=== PATIENT | male | born 1970 | race American Indian/Alaskan Native ===

== ENCOUNTER 2021-02-02 04:23 | Inpatient (IN) | payer SELFPAY ==
[2021-02-02] MEDS ORDERED: ONDANSETRON 4 MG ODT TAB PO ONE (05:38)
[2021-02-02] MEDS ORDERED: predniSONE 20 MG TAB PO ONE (05:38)
[2021-02-02] MEDS ORDERED: oxyCODONE /ACETAMINOPHEN 5-325MG TAB PO ONE (05:38)
[2021-02-02] MEDS ORDERED: IBUPROFEN 600 MG TAB PO ONE (05:38)
--- NOTE | 2021-02-02 05:40 | Event Note ---
ED Screening Note Date of service: 02/02/21 Time: 05:39 ED Screening Note: Patient is a 50-year-old -[place] male with no past medical history who presents to the ED with complaint of acute onset persistent nontraumatic low back pain for the last 3 days. Patient states that he has not been able to walk because of worsening pain. Patient denies fall, traumatic injury, dizziness, syncope, fever, chills, nausea and vomiting, abdominal pain, testicular pain, dysuria, urinary frequency and urgency, hematuria, urinary retention, bowel incontinence or saddle paresthesia. This initial assessment/diagnostic orders/clinical plan/treatment(s) is/are subject to change based on patients health status, clinical progression and re- assessment by fellow clinical providers in the ED. Further treatment and workup at subsequent clinical providers discretion. Patient/guardian urged not to elope from the ED as their condition may be serious if not clinically assessed and managed. Initial orders include:
[2021-02-02 06:09] LABS: Bilirubin,Urine NEG (Negative); Blood,Urine LG (Negative); Color,Urine Amber (Yellow); Hyaline Casts,Urine 2 /LPF; Mucus,Urine 3+ /HPF; Protein,Urine >500 mg/dL (Negative)
--- NOTE | 2021-02-02 06:14 | XRay Report ---
LUMBAR SPINE 2 VIEWS INDICATION: Low back pain COMPARISON: None. FINDINGS: No acute, displaced fracture is seen. Alignment is within normal limits. Disc space height is maintained. No significant degenerative changes. CONCLUSION: 1. No acute findings. Signer Name: Edd Felix MD Signed: 02/02/2021 6:10 AM Workstation Name: [id number]
[2021-02-02] MEDS ORDERED: SODIUM CHLORIDE 0.9% 1000 ML 1,000 ML IV ONE (07:38)
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
[2021-02-02 08:18] LABS: Basophils % (Auto) 0.5 % (0.0-1.8); Eosinophils % (Auto) 0.4 % (0.0-4.3); Hematocrit 45.1 % (35.5-45.6); Hemoglobin 15.2 gm/dl (11.8-15.2); Lymphocytes # (Auto) 0.9 K/mm3 (1.2-5.4); Lymphocytes % (Auto) 15.5 % (13.4-35.0); Mean Corpuscular HGB Conc 34 % (32-34); Mean Corpuscular Volume 96 fl (84-94); Monocytes # (Auto) 0.3 K/mm3 (0.0-0.8); Monocytes % (Auto) 4.6 % (0.0-7.3); Platelet Count 218 K/mm3 (140-440); Red Blood Count 4.71 M/mm3 (3.65-5.03); Red Cell Distribution Width 13.9 % (13.2-15.2)
[2021-02-02 08:33] LABS: Alanine Aminotransferase 232 units/L (7-56); Albumin 4.7 g/dL (3.9-5); BUN/Creatinine Ratio 19; Blood Urea Nitrogen 25 mg/dL (9-20); Calcium 9.3 mg/dL (8.4-10.2); Hemolysis Index 32
--- NOTE | 2021-02-02 08:45 | Cat Scan Report ---
CT ABDOMEN AND PELVIS WITHOUT CONTRAST INDICATION / CLINICAL INFORMATION: abd pain r/o kidney stone. TECHNIQUE: Axial CT images were obtained through the abdomen and pelvis without IV contrast. All CT scans at this location are performed using CT dose reduction for ALARA by means of automated exposure control. COMPARISON: None available. FINDINGS: LOWER CHEST: No significant abnormality. AORTA / ARTERIES: No significant abnormality. IVC / VEINS: No significant abnormality. LYMPH NODES: No significant adenopathy. COLON: No significant abnormality. APPENDIX: No significant abnormality. STOMACH / SMALL BOWEL: No significant abnormality. PERITONEUM: No free fluid. No free air. No fluid collection. LIVER: No significant abnormality. GALLBLADDER: Increased density within the gallbladder lumen suggesting sludge. BILE DUCTS: No significant abnormality. PANCREAS: No significant abnormality. SPLEEN: No significant abnormality. ADRENALS: No significant abnormality. RIGHT KIDNEY / URETER: No significant abnormality. LEFT KIDNEY / URETER: No significant abnormality. URINARY BLADDER: No significant abnormality. REPRODUCTIVE ORGANS: No significant abnormality. SKELETAL SYSTEM: No significant abnormality. ADDITIONAL FINDINGS: None. IMPRESSION: 1. No nephrolithiasis or hydronephrosis. 2. Increased density within gallbladder lumen suggesting sludge. Signer Name: Adrián Novoa DO Signed: 02/02/2021 8:41 AM Workstation Name: [id number]
--- NOTE | 2021-02-02 10:03 | Ultrasound Report ---
ULTRASOUND ABDOMEN, LIMITED (RIGHT UPPER QUADRANT) INDICATION: ruq u/s- back pain- inc lft. COMPARISON: None available. FINDINGS: Pancreas: Visualized portion shows no significant abnormality. Liver: Normal. Gallbladder: There is cholelithiasis. There is sludge in the lumen of the gallbladder. Bile ducts: The common bile duct measures up to 9 mm in diameter. The duct tapers to a normal diamete r at the pancreatic head. There is some echogenic material within the common duct suggesting presence of sludge. No stones are identified within the common duct. Common Bile Duct measures 9 mm. Free fluid: None. Additional Findings: None. IMPRESSION: 1. Sludge and gallstone are noted within the lumen of the gallbladder. 2. There is mild dilatation of the common bile duct proximally. The duct tapers to a normal diameter at the pancreatic head. There is some mild echogenic material within the common duct suggesting sludg e within the duct. Signer Name: Ramos Isidro MD Signed: 02/02/2021 9:58 AM Workstation Name: [id number]
[2021-02-02] MEDS ORDERED: LACTATED RINGERS 1,000 ML IV SCH (11:00)
--- NOTE | 2021-02-02 15:26 | History and Physical Report ---
History of Present Illness Date of admission: 02/02/21 10:41 History of present illness: 50-year-old -English male with PMH of substance abuse including cocaine currently, HIV diagnosed about 10 years ago and maintained on antiviral therapy and hernia surgery remotely was just released from detention last week after spending the last 9 months. He presented to ED with a 4-week history of low back pain with radiation and passing colored urine which he thought was blood. He has some difficulty ambulating due to back pain. He has no history of kidney stones. No dysuria. No fever or chills. No abdominal pains, nausea or vomiting. Appetite is unchanged. In ED, CT abdomen showed no kidney stone but did show gallstones and sludge. Blood work showed AST 515 ALT 232 TBR 2.3 and ALP 53. CBC normal. Creatinine 1.3. UA unremarkable. No RBC. Ultrasound showed gallstones and gall sludge in gallbladder without evidence of cholecystitis. Also sludge noted in the biliary ducts with mild dilatation of proximal common bile duct. Lipase 620. Patient is being admitted for acute biliary pancreatitis and the ED physician consulted gastroenterology. Review of systems: 13 system reviewed only the pertinent data stated ER. Patient denies fever or chills. No change in weight. Patient denies any history of cardiac problems, lung disease, diabetes, hypertension or strokes. P atient states that he is compliant with his antiviral HIV medication. Patient denies cough, dyspnea, palpitations, lightheadedness. Patient denies any history of back pain recent history of injury to back. He does smoke crack cocaine and the last time was about 2 days ago. Past medical history substance abuse including cocaine currently, HIV diagnosed about 10 years ago Past surgical history: Hernia repair reportedly. Social history: Just released from detention after spending 9 months. Lives with sister currently. Smokes 1 pack of cigarettes in a week. Does not use alcohol. Does smoke crack cocaine the last about 2 2 days ago. Family history: Noncontributory. Medications and Allergies Allergies Allergy/AdvReac Type Severity Reaction Status Date / Time shellfish derived Allergy Itching Verified 09/26/13 03:53 Home Medications Medication Instructions Recorded Confirmed Last Taken Type No Known Home Medications [No 02/02/21 02/02/21 Unknown History Reported Home Medications] Active Meds: Active Medications Lactated Ringer's (Lactated Ringers) 1,000 mls @ 75 mls/hr IV DIRECT ZIGGY Exam - Constitutional Vitals: Temp Pulse Resp BP Pulse Ox 97.9 F 98 H 18 145/71 97 02/02/21 07:24 02/02/21 04:34 02/02/21 05:46 02/02/21 07:24 02/02/21 04:34 General appearance: Present: no acute distress, well-nourished - EENT Eyes: Present: PERRL, EOM intact. Absent: scleral icterus ENT: clear oral mucosa, no thrush - Neck Neck: Present: supple - Respiratory Respiratory effort: normal Respiratory: bilateral: CTA - Cardiovascular Rhythm: regular - Extremities Extremities: No edema - Abdominal General gastrointestinal: Present: soft, non-tender, non-distended, normal bowel sounds, other (No CVA tenderness.) Male genitourinary: Present: deferred - Rectal Rectal Exam: deferred - Integumentary Integumentary: Absent: rash - Musculoskeletal Musculoskeletal: strength equal bilaterally, other (Straight leg raising test no rmal. No lumbar spinal tenderness with palpation/percussion.) - Psychiatric Psychiatric: appropriate mood/affect - Neurologic Neurologic: no focal deficits Results - Labs CBC & Chem 7: 02/02/21 07:56 02/02/21 07:56 Labs: Laboratory Last Values WBC 6.1 K/mm3 (4.5-11.0) 02/02/21 07:56 RBC 4.71 M/mm3 (3.65-5.03) 02/02/21 07:56 Hgb 15.2 gm/dl (11.8-15.2) 02/02/21 07:56 Hct 45.1 % (35.5-45.6) 02/02/21 07:56 MCV 96 fl (84-94) H 02/02/21 07:56 MCH 32 pg (28-32) 02/02/21 07:56 MCHC 34 % (32-34) 02/02/21 07:56 RDW 13.9 % (13.2-15.2) 02/02/21 07:56 Plt Count 218 K/mm3 (140-440) 02/02/21 07:56 Lymph % (Auto) 15.5 % (13.4-35.0) 02/02/21 07:56 [place] % (Auto) 4.6 % (0.0-7.3) 02/02/21 07:56 Eos % (Auto) 0.4 % (0.0-4.3) 02/02/21 07:56 Baso % (Auto) 0.5 % (0.0-1.8) 02/02/21 07:56 Lymph # (Auto) 0.9 K/mm3 (1.2-5.4) L 02/02/21 07:56 [place] # (Auto) 0.3 K/mm3 (0.0-0.8) 02/02/21 07:56 Eos # (Auto) 0.0 K/mm3 (0.0-0.4) 02/02/21 07:56 Baso # (Auto) 0.0 K/mm3 (0.0-0.1) 02/02/21 07:56 Seg Neutrophils % 79.0 % (40.0-70.0) H 02/02/21 07:56 Seg Neutrophils # 4.8 K/mm3 (1.8-7.7) 02/02/21 07:56 Sodium 138 mmol/L (137-145) 02/02/21 07:56 Potassium 4.3 mmol/L (3.6-5.0) 02/02/21 07:56 Chloride 99.9 mmol/L (98-107) 02/02/21 07:56 Carbon Dioxide 24 mmol/L (22-30) 02/02/21 07:56 Anion Gap 18 mmol/L 02/02/21 07:56 BUN 25 mg/dL (9-20) H 02/02/21 07:56 Creatinine 1.3 mg/dL (0.8-1.3) 02/02/21 07:56 Estimated GFR > 60 ml/min 02/02/21 07:56 BUN/Creatinine Ratio 19 % 02/02/21 07:56 Glucose 125 mg/dL (75-100) H 02/02/21 07:56 Calcium 9.3 mg/dL (8.4-10.2) 02/02/21 07:56 Total Bilirubin 2.30 mg/dL (0.1-1.2) H 02/02/21 07:56 AST 515 units/L (5-40) H 02/02/21 07:56 ALT 232 units/L (7-56) H 02/02/21 07:56 Alkaline Phosphatase 53 units/L (35-129) 02/02/21 07:56 Total Protein 8.4 g/dL (6.3-8.2) H 02/02/21 07:56 Albumin 4.7 g/dL (3.9-5) 02/02/21 07:56 Albumin/Globulin Ratio 1.3 % 02/02/21 07:56 Lipase 620 units/L (13-60) H 02/02/21 09:24 Urine Color [place] (Yellow) 02/02/21 Unknown Urine Turbidity Slightly-cloudy (Clear) 02/02/21 Unknown Urine pH 5.0 (5.0-7.0) 02/02/21 Unknown Ur Specific [place] 1.029 (1.003-1.030) 02/02/21 Unknown Urine Protein >500 mg/dL (Negative) 02/02/21 Unknown Urine Glucose (UA) Neg mg/dL (Negative) 02/02/21 Unknown Urine Ketones Neg mg/dL (Negative) 02/02/21 Unknown Urine Blood Lg (Negative) 02/02/21 Unknown Urine Nitrite Neg (Negative) 02/02/21 Unknown Urine Bilirubin Neg (Negative) 02/02/21 Unknown Urine Urobilinogen 4.0 mg/dL (<2.0) 02/02/21 Unknown Ur Leukocyte Esterase Neg (Negative) 02/02/21 Unknown Urine WBC (Auto) 7.0 /HPF (0.0-6.0) H 02/02/21 Unknown Urine RBC (Auto) 5.0 /HPF (0.0-6.0) 02/02/21 Unknown U Epithel Cells (Auto) < 1.0 /HPF (0-13.0) 02/02/21 Unknown Hyaline Casts 2 /LPF 02/02/21 Unknown Urine Mucus 3+ /HPF 02/02/21 Unknown Assessment and Plan Assessment and plan: Assessment: 50-year-old male presenting with a 4-day history of low back pain and found to have elevated lipase, elevated LFTs cholelithiasis and sludge in gallbladder as well as in biliary ducts with the mild dilatation of proximal common bile duct. Biliary pancreatitis Biliary obstruction Afebrile without acute GI symptoms, hemodynamically stable History of HIV diagnosed about 10 years ago Patient reports compliance with antiviral therapy Substance abuse including crack cocaine currently Plan: N.p.o. Hydration with IV fluids Pain management as needed GI already consulted Monitor lab abnormalities. Likely needs general surgery consultation for laparoscopic cholecystectomy DVT prophylaxis: Subcu Lovenox CODE STATUS: Full code Discussed with the patient in detail.
[2021-02-02] MEDS ORDERED: ONDANSETRON 4 MG/2 ML INJ IV PRN (15:33)
[2021-02-02] MEDS: HYDROmorphone 1 MG/1 ML INJ IV PRN ×2 (19:50→23:47)
[2021-02-02] MEDS: D5W/0.9% NACL 1,000 ML IV SCH ×2 (19:51→23:46)
[2021-02-02] MEDS: ENOXAPARIN 40 MG/0.4 ML INJ SUB-Q SCH (23:36)
[2021-02-03 06:00] LABS: Basophils % (Auto) 0.5 % (0.0-1.8); Eosinophils # (Auto) 0.1 K/mm3 (0.0-0.4); Eosinophils % (Auto) 1.4 % (0.0-4.3); Hematocrit 41.4 % (35.5-45.6); Hemoglobin 13.6 gm/dl (11.8-15.2); Lymphocytes # (Auto) 2.3 K/mm3 (1.2-5.4); Lymphocytes % (Auto) 37.2 % (13.4-35.0); Mean Corpuscular HGB Conc 33 % (32-34); Mean Corpuscular Volume 95 fl (84-94); Monocytes # (Auto) 0.4 K/mm3 (0.0-0.8); Monocytes % (Auto) 6.5 % (0.0-7.3); Platelet Count 196 K/mm3 (140-440); Red Blood Count 4.35 M/mm3 (3.65-5.03); Red Cell Distribution Width 13.9 % (13.2-15.2)
[2021-02-03 06:24] LABS: Alanine Aminotransferase 189 units/L (7-56); Albumin 3.8 g/dL (3.9-5); BUN/Creatinine Ratio 20; Blood Urea Nitrogen 20 mg/dL (9-20); Calcium 8.3 mg/dL (8.4-10.2); Hemolysis Index 9
[2021-02-03] MEDS: D5W/0.9% NACL 1,000 ML IV SCH ×2 (09:49→22:49)
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
[2021-02-03] MEDS ORDERED: WATER FOR IRRIG STERILE 250 ML BOTTLE IR ONE (13:09)
[2021-02-03] MEDS ORDERED: WATER FOR IRRIG STERILE 1,000 ML BOTTLE ONE (13:09)
--- NOTE | 2021-02-03 13:25 | Anesthesia Consultation ---
Anesthesia Consult and Med Hx Date of service: 02/04/21 - Airway Anesthetic Teeth Evaluation: Good ROM Head & Neck: Adequate Mental/Hyoid Distance: Adequate Mallampati Class: Class II Intubation Access Assessment: Probably Good - Pulmonary Exam CTA: Yes - Cardiac Exam Cardiac Exam: RRR - Pre-Operative Health Status ASA Pre-Surgery Classification: ASA3 Proposed Anesthetic Plan: MAC - Pre-Anesthesia Comment Pre-Anesthesia Comments: HIV positive - Patient states he is compliant with antiviral medications. - Pulmonary Hx Smoking: Yes (2-3 cigarettes per day (1 pack per week)) Hx Asthma: No COPD: No Hx Pneumonia: No - Cardiovascular System Hx Hypertension: No Hx Heart Attack/AMI: No - Central Nervous System Hx Back Pain: Yes Hx Psychiatric Problems: Yes - Gastrointestinal Hx Gastroesophageal Reflux Disease: No - Endocrine Hx End Stage Renal Disease: No - Other Systems Hx Alcohol Use: No Hx Substance Use: Yes (hx of polysubtance abuse - most recent cocaine 2 days prior to admission) Hx Cancer: No - Additional Comments Anesthesia Medical History Comments: Patient scheduled for ERCP due to gallstones/abd pain. No hx of anesthetic complications.
--- NOTE | 2021-02-03 18:13 | Progress Note ---
Assessment and Plan Assessment and plan: Assessment: 50-year-old male presenting with a 4-day history of low back pain and found to have elevated lipase, elevated LFTs cholelithiasis and sludge in gallbladder as well as in biliary ducts with the mild dilatation of proximal common bile duct. Biliary pancreatitis Biliary obstruction with mild dilatation of distal CBD Afebrile without acute GI symptoms, hemodynamically stable History of HIV diagnosed about 10 years ago Patient reports compliance with antiviral therapy Substance abuse including crack cocaine currently Plan: Remains afebrile and hemodynamically stable N.p.o. Hydration with IV fluids Pain management as needed GI already consulted, ERCP scheduled for tomorrow Monitor lab abnormalities-LFTs improving but lipase is rising General surgery consulted for laparoscopic cholecystectomy after GI evaluation completed DVT prophylaxis: Subcu Lovenox CODE STATUS: Full code Discussed with the patient in detail. History Interval history: Patient remains afebrile and stable since. He has no nausea or abdominal pains. He still has low back pain mostly with walking. LFTs improving but let us actually is rising. Scheduled for ERCP tomorrow Hospitalist Physical - Constitutional Vitals: Temp Pulse Resp BP Pulse Ox 98.5 F 63 20 107/55 96 02/03/21 15:44 02/03/21 15:44 02/03/21 15:44 02/03/21 15:44 02/03/21 15:44 General appearance: Present: no acute distress, well-nourished - EENT Eyes: Present: PERRL ENT: clear oral mucosa - Neck Neck: Present: supple - Respiratory Respiratory effort: normal Respiratory: bilateral: CTA - Cardiovascular Rhythm: regular - Extremities Extremities: No edema - Abdominal General gastrointestinal: soft, non-tender, non-distended, normal bowel sounds, other (No mass appreciated) - Integumentary Integumentary: Absent: rash - Psychiatric Psychiatric: appropriate mood/affect - Neurologic Neurologic: no focal deficits Results - Labs CBC & Chem 7: 02/04/21 04:55 02/04/21 04:55 Labs: Laboratory Last Values WBC 6.1 K/mm3 (4.5-11.0) 02/03/21 05:37 RBC 4.35 M/mm3 (3.65-5.03) 02/03/21 05:37 Hgb 13.6 gm/dl (11.8-15.2) 02/03/21 05:37 Hct 41.4 % (35.5-45.6) 02/03/21 05:37 MCV 95 fl (84-94) H 02/03/21 05:37 MCH 31 pg (28-32) 02/03/21 05:37 MCHC 33 % (32-34) 02/03/21 05:37 RDW 13.9 % (13.2-15.2) 02/03/21 05:37 Plt Count 196 K/mm3 (140-440) 02/03/21 05:37 Lymph % (Auto) 37.2 % (13.4-35.0) H 02/03/21 05:37 [place] % (Auto) 6.5 % (0.0-7.3) 02/03/21 05:37 Eos % (Auto) 1.4 % (0.0-4.3) 02/03/21 05:37 Baso % (Auto) 0.5 % (0.0-1.8) 02/03/21 05:37 Lymph # (Auto) 2.3 K/mm3 (1.2-5.4) 02/03/21 05:37 [place] # (Auto) 0.4 K/mm3 (0.0-0.8) 02/03/21 05:37 Eos # (Auto) 0.1 K/mm3 (0.0-0.4) 02/03/21 05:37 Baso # (Auto) 0.0 K/mm3 (0.0-0.1) 02/03/21 05:37 Seg Neutrophils % 54.4 % (40.0-70.0) 02/03/21 05:37 Seg Neutrophils # 3.3 K/mm3 (1.8-7.7) 02/03/21 05:37 Sodium 142 mmol/L (137-145) 02/03/21 05:37 Potassium 3.8 mmol/L (3.6-5.0) 02/03/21 05:37 Chloride 104.2 mmol/L (98-107) 02/03/21 05:37 Carbon Dioxide 27 mmol/L (22-30) 02/03/21 05:37 Anion Gap 15 mmol/L 02/03/21 05:37 BUN 20 mg/dL (9-20) 02/03/21 05:37 Creatinine 1.0 mg/dL (0.8-1.3) 02/03/21 05:37 Estimated GFR > 60 ml/min 02/03/21 05:37 BUN/Creatinine Ratio 20 % 02/03/21 05:37 Glucose 92 mg/dL (75-100) 02/03/21 05:37 Calcium 8.3 mg/dL (8.4-10.2) L 02/03/21 05:37 Total Bilirubin 1.70 mg/dL (0.1-1.2) H 02/03/21 05:37 AST 399 units/L (5-40) H 02/03/21 05:37 ALT 189 units/L (7-56) H 02/03/21 05:37 Alkaline Phosphatase 44 units/L (35-129) 02/03/21 05:37 Total Protein 6.7 g/dL (6.3-8.2) D 02/03/21 05:37 Albumin 3.8 g/dL (3.9-5) L 02/03/21 05:37 Albumin/Globulin Ratio 1.3 % 02/03/21 05:37 Lipase 1050 units/L (13-60) H 02/03/21 05:37 Urine Color [place] (Yellow) 02/02/21 Unknown Urine Turbidity Slightly-cloudy (Clear) 02/02/21 Unknown Urine pH 5.0 (5.0-7.0) 02/02/21 Unknown Ur Specific [place] 1.029 (1.003-1.030) 02/02/21 Unknown Urine Protein >500 mg/dL (Negative) 02/02/21 Unknown Urine Glucose (UA) Neg mg/dL (Negative) 02/02/21 Unknown Urine Ketones Neg mg/dL (Negative) 02/02/21 Unknown Urine Blood Lg (Negative) 02/02/21 Unknown Urine Nitrite Neg (Negative) 02/02/21 Unknown Urine Bilirubin Neg (Negative) 02/02/21 Unknown Urine Urobilinogen 4.0 mg/dL (<2.0) 02/02/21 Unknown Ur Leukocyte Esterase Neg (Negative) 02/02/21 Unknown Urine WBC (Auto) 7.0 /HPF (0.0-6.0) H 02/02/21 Unknown Urine RBC (Auto) 5.0 /HPF (0.0-6.0) 02/02/21 Unknown U Epithel Cells (Auto) < 1.0 /HPF (0-13.0) 02/02/21 Unknown Hyaline Casts 2 /LPF 02/02/21 Unknown Urine Mucus 3+ /HPF 02/02/21 Unknown Marie/IV: Voiding Method Toilet Active Medications - Current Medications Current Medications: Generic Name Dose Route Start Last Admin Trade Name Freq PRN Reason Stop Dose Admin Enoxaparin Sodium 40 mg 02/02/21 22:00 02/02/21 23:36 Enoxaparin 40 Mg/0.4 Ml Inj SUB-Q 40 mg QDAY@2200 ZIGGY Administration Protocol Hydromorphone HCl 0.25 mg 02/02/21 15:33 02/02/21 23:47 Hydromorphone 1 Mg/1 Ml Inj IV 0.25 mg Q4H PRN Administration Pain , Severe (7-10) Dextrose/Sodium Chloride 1,000 mls @ 100 mls/hr 02/02/21 18:00 02/03/21 09:49 D5ns IV 100 mls/hr DIRECT ZIGGY Administration Ondansetron HCl 4 mg 02/02/21 15:33 02/02/21 19:50 Ondansetron 4 Mg/2 Ml Inj IV 4 mg Q6H PRN Administration Nausea And Vomiting
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
[2021-02-03] MEDS: ENOXAPARIN 40 MG/0.4 ML INJ SUB-Q SCH (22:49)
[2021-02-04 05:25] LABS: Hematocrit 41.1 % (35.5-45.6); Hemoglobin 13.6 gm/dl (11.8-15.2); Mean Corpuscular HGB Conc 33 % (32-34); Mean Corpuscular Volume 95 fl (84-94); Platelet Count 189 K/mm3 (140-440); Red Blood Count 4.35 M/mm3 (3.65-5.03); Red Cell Distribution Width 13.7 % (13.2-15.2)
[2021-02-04 05:44] LABS: Alanine Aminotransferase 147 units/L (7-56); Albumin 3.4 g/dL (3.9-5); BUN/Creatinine Ratio 15; Blood Urea Nitrogen 12 mg/dL (9-20); Calcium 7.8 mg/dL (8.4-10.2); Hemolysis Index 7
[2021-02-04] MEDS ORDERED: SODIUM CHLORIDE 0.9% 100 ML ONE (06:42)
[2021-02-04] MEDS ORDERED: SODIUM CHLORIDE 0.9% 1000 ML 1,000 ML ONE ×2 (06:42→09:21)
[2021-02-04 06:55] LABS: Total Cells Counted 100
[2021-02-04 06:56] LABS: Platelet Estimate Consistent w Auto
--- NOTE | 2021-02-04 07:41 | Anesthesia Day of Surgery ---
Anesthesia Day of Surgery - Day of Surgery Patient Examined: Yes Patient H&P Reviewed: Yes Patient is NPO: Yes
[2021-02-04] MEDS ORDERED: MIDAZOLAM 2 MG/2 ML INJ ONE (07:44)
[2021-02-04] MEDS ORDERED: HYDROmorphone 1 MG/1 ML INJ ONE (07:44)
[2021-02-04] MEDS ORDERED: propofoL 200 MG/20 ML VIAL IV ONE ×2 (07:44→07:45)
[2021-02-04] MEDS ORDERED: GLUCAGON (HUMAN RECOMBINANT) 1 MG/ML INJ IV ONE (08:20)
--- NOTE | 2021-02-04 09:07 | Post Operative Note ---
Pre-op diagnosis: Abnl US CBD Post-op diagnosis: other (Ampullary stenosis) Findings: 1. Normal external ampulla but stenosis or aberrent anatomy; could not cannulate cBD or PD Procedure: EGD with attempted ERCP Anesthesia: MAC Surgeon: NIYA VENEGAS Estimated blood loss: none Pathology: none Specimen disposition: other (N/A) Condition: stable Disposition: floor (Recs: 1. Clear liquids. 2. Trial of [place] since US showed only sludge not stones in CBD. 3. Continue abx. 4. Re=attempt ERCP when clinically stable.)
--- NOTE | 2021-02-04 09:30 | Progress Note ---
Assessment and Plan Assessment and plan: 50-year-old male presenting with a 4-day history of low back pain and found to have elevated lipase, elevated LFTs cholelithiasis and sludge in gallbladder as well as in biliary ducts with the mild dilatation of proximal common bile duct. --Biliary obstruction with mild dilatation of distal CBD Post EGD and trial of ERCP unable, plan repeat ERCP when patient is more stable Trial estradiol started by GI, Clear liquids at this point Surgery evaluated the patient, possible lap cholecystectomy prior to discharge --Transaminitis; slowly trending down Continue current management and supportive care --Acute pancreatitis; biliary pancreatitis Symptoms slightly improved For ERCP, clear liquid diet Lipase trending down 1050 -70 GI following GI following GI following Afebrile without acute GI symptoms, hemodynamically stable --History of HIV diagnosed about 10 years ago Patient reports compliance with antiviral therapy Patient will follow with private ID/health department upon discharge --Substance abuse including crack cocaine currently; Counseling done patient strongly advised to quit recreational drug use Patient verbalized understanding General surgery consulted for laparoscopic cholecystectomy after GI evaluation completed DVT prophylaxis: Subcu Lovenox CODE STATUS: Full code Closely monitor the patient and adjust management as needed 02/04/2021; post EGD/ERCP attempted GI started clear liquids, repeat attempt ERCP when patient is more stable Transaminases trending down Lipase trending down History Interval history: I have seen and examined the patient at the bedside Patient underwent EGD with attempted ERCP for biliary pancreatitis Findings noted, planning repeat ERCP when patient is more stable Trial of ursodiol started by GI Hospitalist Physical - Constitutional Vitals: Temp Pulse Resp BP Pulse Ox 97.8 F 65 12 116/53 97 02/04/21 07:36 02/04/21 07:36 02/04/21 07:36 02/04/21 07:36 02/04/21 04:11 General appearance: Present: no acute distress, well-nourished - EENT Eyes: Present: PERRL, EOM intact - Neck Neck: Present: supple, normal ROM - Respiratory Respiratory effort: normal Respiratory: bilateral: diminished, negative: rales, rhonchi, wheezing - Cardiovascular Rhythm: regular Heart Sounds: Present: S1 & S2 - Extremities Extremities: no ischemia, No edema - Abdominal General gastrointestinal: soft, non-tender, non-distended, normal bowel sounds - Integumentary Integumentary: Present: clear, warm - Psychiatric Psychiatric: appropriate mood/affect, cooperative - Neurologic Neurologic: moves all extremities Results - Labs CBC & Chem 7: 02/04/21 04:55 02/04/21 04:55 Labs: Laboratory Last Values WBC 3.3 K/mm3 (4.5-11.0) L 02/04/21 04:55 RBC 4.35 M/mm3 (3.65-5.03) 02/04/21 04:55 Hgb 13.6 gm/dl (11.8-15.2) 02/04/21 04:55 Hct 41.1 % (35.5-45.6) 02/04/21 04:55 MCV 95 fl (84-94) H 02/04/21 04:55 MCH 31 pg (28-32) 02/04/21 04:55 MCHC 33 % (32-34) 02/04/21 04:55 RDW 13.7 % (13.2-15.2) 02/04/21 04:55 Plt Count 189 K/mm3 (140-440) 02/04/21 04:55 Lymph % (Auto) 37.2 % (13.4-35.0) H 02/03/21 05:37 [place] % (Auto) 6.5 % (0.0-7.3) 02/03/21 05:37 Eos % (Auto) 1.4 % (0.0-4.3) 02/03/21 05:37 Baso % (Auto) 0.5 % (0.0-1.8) 02/03/21 05:37 Lymph # (Auto) 2.3 K/mm3 (1.2-5.4) 02/03/21 05:37 [place] # (Auto) 0.4 K/mm3 (0.0-0.8) 02/03/21 05:37 Eos # (Auto) 0.1 K/mm3 (0.0-0.4) 02/03/21 05:37 Baso # (Auto) 0.0 K/mm3 (0.0-0.1) 02/03/21 05:37 Add Manual Diff Complete 02/04/21 04:55 Total Counted 100 02/04/21 04:55 Seg Neutrophils % 54.4 % (40.0-70.0) 02/03/21 05:37 Seg Neuts % (Manual) 32.0 % (40.0-70.0) L 02/04/21 04:55 Lymphocytes % (Manual) 49.0 % (13.4-35.0) H 02/04/21 04:55 Reactive Lymphs % (Man) 12.0 % 02/04/21 04:55 Monocytes % (Manual) 7.0 % (0.0-7.3) 02/04/21 04:55 Nucleated RBC % Not Reportable 02/04/21 04:55 Seg Neutrophils # 3.3 K/mm3 (1.8-7.7) 02/03/21 05:37 Seg Neutrophils # Man 1.1 K/mm3 (1.8-7.7) L 02/04/21 04:55 Band Neutrophils # 0.0 K/mm3 02/04/21 04:55 Lymphocytes # (Manual) 1.6 K/mm3 (1.2-5.4) 02/04/21 04:55 Abs React Lymphs (Man) 0.4 K/mm3 02/04/21 04:55 Monocytes # (Manual) 0.2 K/mm3 (0.0-0.8) 02/04/21 04:55 Eosinophils # (Manual) 0.0 K/mm3 (0.0-0.4) 02/04/21 04:55 Basophils # (Manual) 0.0 K/mm3 (0.0-0.1) 02/04/21 04:55 Metamyelocytes # 0.0 K/mm3 02/04/21 04:55 Myelocytes # 0.0 K/mm3 02/04/21 04:55 Promyelocytes # 0.0 K/mm3 02/04/21 04:55 Blast Cells # 0.0 K/mm3 02/04/21 04:55 WBC Morphology Not Reportable 02/04/21 04:55 Hypersegmented Neuts Not Reportable 02/04/21 04:55 Hyposegmented Neuts Not Reportable 02/04/21 04:55 Hypogranular Neuts Not Reportable 02/04/21 04:55 Smudge Cells Not Reportable 02/04/21 04:55 Toxic Granulation Not Reportable 02/04/21 04:55 Toxic Vacuolation Not Reportable 02/04/21 04:55 Dohle Bodies Not Reportable 02/04/21 04:55 Pel[place]-Huet Anomaly Not Reportable 02/04/21 04:55 Deisy Rods Not Reportable 02/04/21 04:55 Platelet Estimate Consistent w auto 02/04/21 04:55 Clumped Platelets Not Reportable 02/04/21 04:55 Plt Clumps, EDTA Not Reportable 02/04/21 04:55 Large Platelets Not Reportable 02/04/21 04:55 Giant Platelets Not Reportable 02/04/21 04:55 Platelet Satelliting Not Reportable 02/04/21 04:55 Plt Morphology Comment Not Reportable 02/04/21 04:55 RBC Morphology Not Reportable 02/04/21 04:55 Dimorphic RBCs Not Reportable 02/04/21 04:55 Polychromasia Not Reportable 02/04/21 04:55 Hypochromasia Not Reportable 02/04/21 04:55 Poikilocytosis Not Reportable 02/04/21 04:55 Anisocytosis Not Reportable 02/04/21 04:55 Microcytosis Not Reportable 02/04/21 04:55 Macrocytosis Not Reportable 02/04/21 04:55 Spherocytes Not Reportable 02/04/21 04:55 Pappenheimer Bodies Not Reportable 02/04/21 04:55 Sickle Cells Not Reportable 02/04/21 04:55 Target Cells Not Reportable 02/04/21 04:55 Tear Drop Cells Not Reportable 02/04/21 04:55 Ovalocytes Not Reportable 02/04/21 04:55 Helmet Cells Not Reportable 02/04/21 04:55 [place] Bodies Not Reportable 02/04/21 04:55 [place] Rings Not Reportable 02/04/21 04:55 [place] Cells Not Reportable 02/04/21 04:55 Bite Cells Not Reportable 02/04/21 04:55 Crenated Cell Not Reportable 02/04/21 04:55 Elliptocytes Not Reportable 02/04/21 04:55 Acanthocytes (Spur) Not Reportable 02/04/21 04:55 Rouleaux Not Reportable 02/04/21 04:55 Hemoglobin C Crystals Not Reportable 02/04/21 04:55 Schistocytes Not Reportable 02/04/21 04:55 Malaria parasites Not Reportable 02/04/21 04:55 Fili Bodies Not Reportable 02/04/21 04:55 Hem Pathologist Commnt No 02/04/21 04:55 Sodium 142 mmol/L (137-145) 02/04/21 04:55 Potassium 4.0 mmol/L (3.6-5.0) 02/04/21 04:55 Chloride 107.8 mmol/L (98-107) H 02/04/21 04:55 Carbon Dioxide 26 mmol/L (22-30) 02/04/21 04:55 Anion Gap 12 mmol/L 02/04/21 04:55 BUN 12 mg/dL (9-20) 02/04/21 04:55 Creatinine 0.8 mg/dL (0.8-1.3) 02/04/21 04:55 Estimated GFR > 60 ml/min 02/04/21 04:55 BUN/Creatinine Ratio 15 % 02/04/21 04:55 Glucose 100 mg/dL (75-100) 02/04/21 04:55 Calcium 7.8 mg/dL (8.4-10.2) L 02/04/21 04:55 Total Bilirubin 0.90 mg/dL (0.1-1.2) 02/04/21 04:55 AST 222 units/L (5-40) H 02/04/21 04:55 ALT 147 units/L (7-56) H 02/04/21 04:55 Alkaline Phosphatase 40 units/L (35-129) 02/04/21 04:55 Total Protein 5.9 g/dL (6.3-8.2) L 02/04/21 04:55 Albumin 3.4 g/dL (3.9-5) L 02/04/21 04:55 Albumin/Globulin Ratio 1.4 % 02/04/21 04:55 Lipase 70 units/L (13-60) H 02/04/21 04:55 Urine Color [place] (Yellow) 02/02/21 Unknown Urine Turbidity Slightly-cloudy (Clear) 02/02/21 Unknown Urine pH 5.0 (5.0-7.0) 02/02/21 Unknown Ur Specific [place] 1.029 (1.003-1.030) 02/02/21 Unknown Urine Protein >500 mg/dL (Negative) 02/02/21 Unknown Urine Glucose (UA) Neg mg/dL (Negative) 02/02/21 Unknown Urine Ketones Neg mg/dL (Negative) 02/02/21 Unknown Urine Blood Lg (Negative) 02/02/21 Unknown Urine Nitrite Neg (Negative) 02/02/21 Unknown Urine Bilirubin Neg (Negative) 02/02/21 Unknown Urine Urobilinogen 4.0 mg/dL (<2.0) 02/02/21 Unknown Ur Leukocyte Esterase Neg (Negative) 02/02/21 Unknown Urine WBC (Auto) 7.0 /HPF (0.0-6.0) H 02/02/21 Unknown Urine RBC (Auto) 5.0 /HPF (0.0-6.0) 02/02/21 Unknown U Epithel Cells (Auto) < 1.0 /HPF (0-13.0) 02/02/21 Unknown Hyaline Casts 2 /LPF 02/02/21 Unknown Urine Mucus 3+ /HPF 02/02/21 Unknown Marie/IV: Voiding Method Toilet Active Medications - Current Medications Current Medications: Generic Name Dose Route Start Last Admin Trade Name Freq PRN Reason Stop Dose Admin Enoxaparin Sodium 40 mg 02/02/21 22:00 02/03/21 22:49 Enoxaparin 40 Mg/0.4 Ml Inj SUB-Q 40 mg QDAY@2200 [facility] Administration Protocol Hydromorphone HCl 0.25 mg 02/02/21 15:33 02/02/21 23:47 Hydromorphone 1 Mg/1 Ml Inj IV 0.25 mg Q4H PRN Administration Pain , Severe (7-10) Dextrose/Sodium Chloride 1,000 mls @ 100 mls/hr 02/02/21 18:00 02/03/21 22:49 D5ns IV 100 mls/hr DIRECT ZIGGY Administration Levofloxacin/Dextrose 500 mg in 100 mls @ 100 mls/hr 02/04/21 10:00 Levaquin 500mg/100ml IV Q24H [facility] Protocol Ondansetron HCl 4 mg 02/02/21 15:33 02/02/21 19:50 Ondansetron 4 Mg/2 Ml Inj IV 4 mg Q6H PRN Administration Nausea And Vomiting Ursodiol 500 mg 02/04/21 10:00 Ursodiol 250 Mg Tab PO BID [facility]
--- NOTE | 2021-02-04 09:47 | Operative Report ---
DATE OF SURGERY: 02/04/2021 PROCEDURE PERFORMED: Esophagogastroduodenoscopy with attempted ERCP. PREOPERATIVE DIAGNOSES: Abnormal ultrasound of the common bile duct, gallstones, recent pancreatitis. 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 ENDOSCOPIST: Brian Patel MD INSTRUMENT: The Olympus video endoscope. MEDICATIONS: MAC anesthesia by anesthesia services. COMPLICATIONS: No apparent complications. ESTIMATED BLOOD LOSS: None. SPECIMENS: None. IMPLANTS: None. ASSISTANTS: None. CONDITION AT COMPLETION: Stable. DESCRIPTION OF PROCEDURE: The patient was informed of the risks and benefits of the procedure. He signed the informed consent to proceed. He was placed in the prone position. The above sedative medications were given. His vital signs remained stable throughout the procedure. The instrument was advanced from the mouth to the second portion of the duodenum under direct visualization. The ampulla was normal in shape and size with no evidence of mass. We attempted to cannulate using a Fusion sphincterotome and a 0.035 guidewire, both the short and long position, multiple attempts; neither the wire nor the catheter would pass. It is unclear whether there is ampullary stenosis, such as HIV cholangiopathy, or just intrinsic stenosis of the common bile duct. The procedure was then terminated. No other lesions were noted. FINDINGS: Normal external ampulla, but stenosis or aberrant anatomy including possibly stricture; could not cannulate the common bile duct or the pancreatic duct. RECOMMENDATIONS: 1. Clear liquid diet. 2. Trial of ursodiol since the ultrasound showed only sludge and not gallstones in the common bile duct. 3. Continue antibiotics. 4. Repeat ERCP when clinically stable. TID: [id number] RECEIPT: [id number] ISIAH/ISAIAS
--- NOTE | 2021-02-04 13:40 | Progress Note ---
Assessment and Plan - Patient Problems (1) Biliary acute pancreatitis Current Visit: Yes Status: Acute Plan to address problem: 1) See GI post-ERCP note. Subjective Date of service: 02/04/21 Patient Reports: Positive: no new complaints, tolerating liquids well Objective Vital Signs - 12hr 02/04/21 02/04/21 02/04/21 04:11 07:36 09:05 Temperature 98.2 F 97.8 F 97.5 F L Pulse Rate 64 65 102 H Respiratory 18 12 14 Rate Blood Pressure 104/59 116/53 123/69 O2 Sat by Pulse 97 95 Oximetry 02/04/21 02/04/21 02/04/21 09:10 09:15 09:30 Temperature Pulse Rate 94 H 88 81 Respiratory 14 16 19 Rate Blood Pressure 126/78 116/80 106/79 O2 Sat by Pulse 95 95 97 Oximetry 02/04/21 11:27 Temperature Pulse Rate Respiratory 18 Rate Blood Pressure O2 Sat by Pulse 92 Oximetry - Abdomen [id number]_[id number] 4, PM_46_[id number] 6, PM_46_EXABD1 8 Hernia: none - Labs 02/04/21 04:55 02/04/21 04:55 Diabetes panel 02/04/21 Range/Units 04:55 Sodium 142 (137-145) mmol/L Potassium 4.0 (3.6-5.0) mmol/L Chloride 107.8 H (98-107) mmol/L Carbon Dioxide 26 (22-30) mmol/L BUN 12 (9-20) mg/dL Creatinine 0.8 (0.8-1.3) mg/dL Glucose 100 (75-100) mg/dL Calcium 7.8 L (8.4-10.2) mg/dL AST 222 H (5-40) units/L ALT 147 H (7-56) units/L Alkaline Phosphatase 40 (35-129) units/L Total Protein 5.9 L (6.3-8.2) g/dL Albumin 3.4 L (3.9-5) g/dL Calcium panel 02/04/21 Range/Units 04:55 Calcium 7.8 L (8.4-10.2) mg/dL Albumin 3.4 L (3.9-5) g/dL Pituitary panel 02/04/21 Range/Units 04:55 Sodium 142 (137-145) mmol/L Potassium 4.0 (3.6-5.0) mmol/L Chloride 107.8 H (98-107) mmol/L Carbon Dioxide 26 (22-30) mmol/L BUN 12 (9-20) mg/dL Creatinine 0.8 (0.8-1.3) mg/dL Glucose 100 (75-100) mg/dL Calcium 7.8 L (8.4-10.2) mg/dL Adrenal panel 02/04/21 Range/Units 04:55 Sodium 142 (137-145) mmol/L Potassium 4.0 (3.6-5.0) mmol/L Chloride 107.8 H (98-107) mmol/L Carbon Dioxide 26 (22-30) mmol/L BUN 12 (9-20) mg/dL Creatinine 0.8 (0.8-1.3) mg/dL Glucose 100 (75-100) mg/dL Calcium 7.8 L (8.4-10.2) mg/dL Total Bilirubin 0.90 (0.1-1.2) mg/dL AST 222 H (5-40) units/L ALT 147 H (7-56) units/L Alkaline Phosphatase 40 (35-129) units/L Total Protein 5.9 L (6.3-8.2) g/dL Albumin 3.4 L (3.9-5) g/dL
--- NOTE | 2021-02-04 14:37 | Post Anesthesia Evaluation ---
- Post Anesthesia Evaluation Patient Participated: Yes Airway Patent: Yes Stable Respiratory Function: Yes Nausea/Vomiting: No Temp > 96.8F: Yes Pain Manageable: Yes Adequeate Hydration: Yes Anesthesia Complications: No Block Receding Appropriately: Not Applicable Patient on Ventilator: No
[2021-02-04] MEDS: URSODIOL 250 MG TAB PO SCH ×2 (15:05→21:41)
[2021-02-04] MEDS: D5W/0.9% NACL 1,000 ML IV SCH (21:40)
[2021-02-04] MEDS: ENOXAPARIN 40 MG/0.4 ML INJ SUB-Q SCH (21:41)
[2021-02-05] MEDS: D5W/0.9% NACL 1,000 ML IV SCH ×2 (06:03→21:12)
[2021-02-05 06:41] LABS: Basophils % (Auto) 0.5 % (0.0-1.8); Eosinophils # (Auto) 0.1 K/mm3 (0.0-0.4); Eosinophils % (Auto) 2.2 % (0.0-4.3); Hematocrit 39.4 % (35.5-45.6); Hemoglobin 13.3 gm/dl (11.8-15.2); Lymphocytes # (Auto) 1.7 K/mm3 (1.2-5.4); Lymphocytes % (Auto) 43.8 % (13.4-35.0); Mean Corpuscular HGB Conc 34 % (32-34); Mean Corpuscular Volume 95 fl (84-94); Monocytes # (Auto) 0.3 K/mm3 (0.0-0.8); Monocytes % (Auto) 8.3 % (0.0-7.3); Platelet Count 190 K/mm3 (140-440); Red Blood Count 4.16 M/mm3 (3.65-5.03); Red Cell Distribution Width 13.6 % (13.2-15.2)
[2021-02-05 06:54] LABS: Alanine Aminotransferase 111 units/L (7-56); Albumin 3.2 g/dL (3.9-5); BUN/Creatinine Ratio 10; Blood Urea Nitrogen 8 mg/dL (9-20); Calcium 7.9 mg/dL (8.4-10.2); Hemolysis Index 62
[2021-02-05] MEDS: URSODIOL 250 MG TAB PO SCH ×2 (10:28→21:13)
--- NOTE | 2021-02-05 17:59 | Gastroenterology Progress Note ---
Assessment and Plan - Patient Problems (1) Choledocholithiasis with acute cholecystitis Current Visit: Yes Status: Acute Plan to address problem: - ERCP 02/04 unsuccessful (?edema from recent pancreatitis versus stricture from HIV or gallstones) - Continue Ursodiol, and antibiotics. - LFTs continue to improve, and no signs of cholangitis. - Will re-attempt ERCP Sunday after further reduction of inflammation. - Since he is clinically markedly better, OK to advance to full liquids. Subjective Date of service: 02/05/21 Principal diagnosis: CBD stones Interval history: The patient has had no N/V/abdominal pain with clear liquids, nor fevers or tachycardia to suggest pancreatitis. Objective - Constitutional Vitals: Temp Pulse Resp BP Pulse Ox 98.3 F 63 18 98/63 92 02/05/21 16:09 02/05/21 16:09 02/05/21 16:09 02/05/21 16:09 02/05/21 16:09 General appearance: no acute distress - EENT Eyes: PERRL, EOM intact ENT: hearing intact, clear oral mucosa - Respiratory Respiratory effort: normal Respiratory: bilateral: CTA - Cardiovascular Rhythm: regular Heart Sounds: Present: S1 & S2 - Gastrointestinal General gastrointestinal: Present: soft, non-tender, non-distended - Labs CBC & Chem 7: 02/05/21 05:12 02/05/21 05:12 Labs: Laboratory Results - last 24 hr 02/05/21 02/05/21 05:12 05:12 WBC 3.9 L RBC 4.16 Hgb 13.3 Hct 39.4 MCV 95 H MCH 32 MCHC 34 RDW 13.6 Plt Count 190 Lymph % (Auto) 43.8 H [place] % (Auto) 8.3 H Eos % (Auto) 2.2 Baso % (Auto) 0.5 Lymph # (Auto) 1.7 [place] # (Auto) 0.3 Eos # (Auto) 0.1 Baso # (Auto) 0.0 Seg Neutrophils % 45.2 Seg Neutrophils # 1.8 Sodium 141 Potassium 3.9 Chloride 108.4 H Carbon Dioxide 24 Anion Gap 13 BUN 8 L Creatinine 0.8 Estimated GFR > 60 BUN/Creatinine Ratio 10 Glucose 101 H Calcium 7.9 L Total Bilirubin 0.80 AST 131 H ALT 111 H Alkaline Phosphatase 40 Total Protein 5.8 L Albumin 3.2 L Albumin/Globulin Ratio 1.2 Lipase 977 H
--- NOTE | 2021-02-05 19:25 | Progress Note ---
Assessment and Plan Assessment and plan: 50-year-old male presenting with a 4-day history of low back pain and found to have elevated lipase, elevated LFTs cholelithiasis and sludge in gallbladder as well as in biliary ducts with the mild dilatation of proximal common bile duct. --Biliary obstruction with mild dilatation of distal CBD Post EGD and trial of ERCP unable, plan repeat ERCP when patient is more stable Trial estradiol started by GI, Clear liquids at this point Surgery evaluated the patient, possible lap cholecystectomy prior to discharge --Transaminitis; slowly trending down Continue current management and supportive care --Acute pancreatitis; biliary pancreatitis Symptoms slightly improved For ERCP, clear liquid diet Lipase trending down 1050 -70 GI following GI following GI following Afebrile without acute GI symptoms, hemodynamically stable --History of HIV diagnosed about 10 years ago Patient reports compliance with antiviral therapy Patient will follow with private ID/health department upon discharge --Substance abuse including crack cocaine currently; Counseling done patient strongly advised to quit recreational drug use Patient verbalized understanding General surgery consulted for laparoscopic cholecystectomy after GI evaluation completed DVT prophylaxis: Subcu Lovenox CODE STATUS: Full code Closely monitor the patient and adjust management as needed 02/04/2021; post EGD/ERCP attempted GI started clear liquids, repeat attempt ERCP when patient is more stable Transaminases trending down Lipase trending down 02/05/21; patient feels better Diet advance to full liquids Possible ERCP on 02/07/2021 History Interval history: Seen and examined the patient at the bedside No new events reported by the nursing staff Patient does not have any new complaints Vital signs noted Hospitalist Physical - Constitutional Vitals: Temp Pulse Resp BP Pulse Ox 98.3 F 63 18 98/63 92 02/05/21 16:09 02/05/21 16:09 02/05/21 16:09 02/05/21 16:09 02/05/21 16:09 General appearance: Present: no acute distress, well-nourished - EENT Eyes: Present: PERRL, EOM intact - Neck Neck: Present: supple, normal ROM - Respiratory Respiratory effort: normal Respiratory: bilateral: diminished, negative: rales, rhonchi, wheezing - Cardiovascular Rhythm: regular Heart Sounds: Present: S1 & S2 - Extremities Extremities: no ischemia, No edema - Abdominal General gastrointestinal: soft, non-tender, non-distended, normal bowel sounds - Integumentary Integumentary: Present: clear, warm - Psychiatric Psychiatric: appropriate mood/affect, cooperative - Neurologic Neurologic: CNII-XII intact, moves all extremities Results - Labs CBC & Chem 7: 02/05/21 05:12 02/05/21 05:12 Labs: Laboratory Last Values WBC 3.9 K/mm3 (4.5-11.0) L 02/05/21 05:12 RBC 4.16 M/mm3 (3.65-5.03) 02/05/21 05:12 Hgb 13.3 gm/dl (11.8-15.2) 02/05/21 05:12 Hct 39.4 % (35.5-45.6) 02/05/21 05:12 MCV 95 fl (84-94) H 02/05/21 05:12 MCH 32 pg (28-32) 02/05/21 05:12 MCHC 34 % (32-34) 02/05/21 05:12 RDW 13.6 % (13.2-15.2) 02/05/21 05:12 Plt Count 190 K/mm3 (140-440) 02/05/21 05:12 Lymph % (Auto) 43.8 % (13.4-35.0) H 02/05/21 05:12 [place] % (Auto) 8.3 % (0.0-7.3) H 02/05/21 05:12 Eos % (Auto) 2.2 % (0.0-4.3) 02/05/21 05:12 Baso % (Auto) 0.5 % (0.0-1.8) 02/05/21 05:12 Lymph # (Auto) 1.7 K/mm3 (1.2-5.4) 02/05/21 05:12 [place] # (Auto) 0.3 K/mm3 (0.0-0.8) 02/05/21 05:12 Eos # (Auto) 0.1 K/mm3 (0.0-0.4) 02/05/21 05:12 Baso # (Auto) 0.0 K/mm3 (0.0-0.1) 02/05/21 05:12 Add Manual Diff Complete 02/04/21 04:55 Total Counted 100 02/04/21 04:55 Seg Neutrophils % 45.2 % (40.0-70.0) 02/05/21 05:12 Seg Neuts % (Manual) 32.0 % (40.0-70.0) L 02/04/21 04:55 Lymphocytes % (Manual) 49.0 % (13.4-35.0) H 02/04/21 04:55 Reactive Lymphs % (Man) 12.0 % 02/04/21 04:55 Monocytes % (Manual) 7.0 % (0.0-7.3) 02/04/21 04:55 Nucleated RBC % Not Reportable 02/04/21 04:55 Seg Neutrophils # 1.8 K/mm3 (1.8-7.7) 02/05/21 05:12 Seg Neutrophils # Man 1.1 K/mm3 (1.8-7.7) L 02/04/21 04:55 Band Neutrophils # 0.0 K/mm3 02/04/21 04:55 Lymphocytes # (Manual) 1.6 K/mm3 (1.2-5.4) 02/04/21 04:55 Abs React Lymphs (Man) 0.4 K/mm3 02/04/21 04:55 Monocytes # (Manual) 0.2 K/mm3 (0.0-0.8) 02/04/21 04:55 Eosinophils # (Manual) 0.0 K/mm3 (0.0-0.4) 02/04/21 04:55 Basophils # (Manual) 0.0 K/mm3 (0.0-0.1) 02/04/21 04:55 Metamyelocytes # 0.0 K/mm3 02/04/21 04:55 Myelocytes # 0.0 K/mm3 02/04/21 04:55 Promyelocytes # 0.0 K/mm3 02/04/21 04:55 Blast Cells # 0.0 K/mm3 02/04/21 04:55 WBC Morphology Not Reportable 02/04/21 04:55 Hypersegmented Neuts Not Reportable 02/04/21 04:55 Hyposegmented Neuts Not Reportable 02/04/21 04:55 Hypogranular Neuts Not Reportable 02/04/21 04:55 Smudge Cells Not Reportable 02/04/21 04:55 Toxic Granulation Not Reportable 02/04/21 04:55 Toxic Vacuolation Not Reportable 02/04/21 04:55 Dohle Bodies Not Reportable 02/04/21 04:55 Pelger-Huet Anomaly Not Reportable 02/04/21 04:55 Deisy Rods Not Reportable 02/04/21 04:55 Platelet Estimate Consistent w auto 02/04/21 04:55 Clumped Platelets Not Reportable 02/04/21 04:55 Plt Clumps, EDTA Not Reportable 02/04/21 04:55 Large Platelets Not Reportable 02/04/21 04:55 Giant Platelets Not Reportable 02/04/21 04:55 Platelet Satelliting Not Reportable 02/04/21 04:55 Plt Morphology Comment Not Reportable 02/04/21 04:55 RBC Morphology Not Reportable 02/04/21 04:55 Dimorphic RBCs Not Reportable 02/04/21 04:55 Polychromasia Not Reportable 02/04/21 04:55 Hypochromasia Not Reportable 02/04/21 04:55 Poikilocytosis Not Reportable 02/04/21 04:55 Anisocytosis Not Reportable 02/04/21 04:55 Microcytosis Not Reportable 02/04/21 04:55 Macrocytosis Not Reportable 02/04/21 04:55 Spherocytes Not Reportable 02/04/21 04:55 Pappenheimer Bodies Not Reportable 02/04/21 04:55 Sickle Cells Not Reportable 02/04/21 04:55 Target Cells Not Reportable 02/04/21 04:55 Tear Drop Cells Not Reportable 02/04/21 04:55 Ovalocytes Not Reportable 02/04/21 04:55 Helmet Cells Not Reportable 02/04/21 04:55 [place] Bodies Not Reportable 02/04/21 04:55 [place] Rings Not Reportable 02/04/21 04:55 [place] Cells Not Reportable 02/04/21 04:55 Bite Cells Not Reportable 02/04/21 04:55 Crenated Cell Not Reportable 02/04/21 04:55 Elliptocytes Not Reportable 02/04/21 04:55 Acanthocytes (Spur) Not Reportable 02/04/21 04:55 Rouleaux Not Reportable 02/04/21 04:55 Hemoglobin C Crystals Not Reportable 02/04/21 04:55 Schistocytes Not Reportable 02/04/21 04:55 Malaria parasites Not Reportable 02/04/21 04:55 Fili Bodies Not Reportable 02/04/21 04:55 Hem Pathologist Commnt No 02/04/21 04:55 Sodium 141 mmol/L (137-145) 02/05/21 05:12 Potassium 3.9 mmol/L (3.6-5.0) 02/05/21 05:12 Chloride 108.4 mmol/L (98-107) H 02/05/21 05:12 Carbon Dioxide 24 mmol/L (22-30) 02/05/21 05:12 Anion Gap 13 mmol/L 02/05/21 05:12 BUN 8 mg/dL (9-20) L 02/05/21 05:12 Creatinine 0.8 mg/dL (0.8-1.3) 02/05/21 05:12 Estimated GFR > 60 ml/min 02/05/21 05:12 BUN/Creatinine Ratio 10 % 02/05/21 05:12 Glucose 101 mg/dL (75-100) H 02/05/21 05:12 POC Glucose 90 mg/dL (70-105) 02/04/21 16:17 Calcium 7.9 mg/dL (8.4-10.2) L 02/05/21 05:12 Total Bilirubin 0.80 mg/dL (0.1-1.2) 02/05/21 05:12 AST 131 units/L (5-40) H 02/05/21 05:12 ALT 111 units/L (7-56) H 02/05/21 05:12 Alkaline Phosphatase 40 units/L (35-129) 02/05/21 05:12 Total Protein 5.8 g/dL (6.3-8.2) L 02/05/21 05:12 Albumin 3.2 g/dL (3.9-5) L 02/05/21 05:12 Albumin/Globulin Ratio 1.2 % 02/05/21 05:12 Lipase 977 units/L (13-60) H 02/05/21 05:12 Urine Color [place] (Yellow) 02/02/21 Unknown Urine Turbidity Slightly-cloudy (Clear) 02/02/21 Unknown Urine pH 5.0 (5.0-7.0) 02/02/21 Unknown Ur Specific [place] 1.029 (1.003-1.030) 02/02/21 Unknown Urine Protein >500 mg/dL (Negative) 02/02/21 Unknown Urine Glucose (UA) Neg mg/dL (Negative) 02/02/21 Unknown Urine Ketones Neg mg/dL (Negative) 02/02/21 Unknown Urine Blood Lg (Negative) 02/02/21 Unknown Urine Nitrite Neg (Negative) 02/02/21 Unknown Urine Bilirubin Neg (Negative) 02/02/21 Unknown Urine Urobilinogen 4.0 mg/dL (<2.0) 02/02/21 Unknown Ur Leukocyte Esterase Neg (Negative) 02/02/21 Unknown Urine WBC (Auto) 7.0 /HPF (0.0-6.0) H 02/02/21 Unknown Urine RBC (Auto) 5.0 /HPF (0.0-6.0) 02/02/21 Unknown U Epithel Cells (Auto) < 1.0 /HPF (0-13.0) 02/02/21 Unknown Hyaline Casts 2 /LPF 02/02/21 Unknown Urine Mucus 3+ /HPF 02/02/21 Unknown Marie/IV: Voiding Method Toilet Active Medications - Current Medications Current Medications: Generic Name Dose Route Start Last Admin Trade Name Freq PRN Reason Stop Dose Admin Enoxaparin Sodium 40 mg 02/02/21 22:00 02/04/21 21:41 Enoxaparin 40 Mg/0.4 Ml Inj SUB-Q 40 mg QDAY@2200 ZIGGY Administration Protocol Hydromorphone HCl 0.25 mg 02/02/21 15:33 02/02/21 23:47 Hydromorphone 1 Mg/1 Ml Inj IV 0.25 mg Q4H PRN Administration Pain , Severe (7-10) Dextrose/Sodium Chloride 1,000 mls @ 100 mls/hr 02/02/21 18:00 02/05/21 06:03 D5ns IV 100 mls/hr DIRECT ZIGGY Administration Levofloxacin/Dextrose 500 mg in 100 mls @ 100 mls/hr 02/04/21 10:00 02/05/21 10:28 Levaquin 500mg/100ml IV 100 mls/hr Q24HR ZIGGY Administration Protocol Ondansetron HCl 4 mg 02/02/21 15:33 02/02/21 19:50 Ondansetron 4 Mg/2 Ml Inj IV 4 mg Q6H PRN Administration Nausea And Vomiting Ursodiol 500 mg 02/04/21 10:00 02/05/21 10:28 Ursodiol 250 Mg Tab PO 500 mg BID ZIGGY Administration
[2021-02-05] MEDS: ENOXAPARIN 40 MG/0.4 ML INJ SUB-Q SCH (21:13)
[2021-02-06] MEDS: D5W/0.9% NACL 1,000 ML IV SCH ×2 (06:09→21:52)
[2021-02-06 06:55] LABS: Hemoglobin 13.3 gm/dl (11.8-15.2); Mean Corpuscular HGB Conc 33 % (32-34); Mean Corpuscular Volume 94 fl (84-94); Platelet Count 192 K/mm3 (140-440); Red Blood Count 4.26 M/mm3 (3.65-5.03); Red Cell Distribution Width 13.5 % (13.2-15.2)
[2021-02-06 09:54] LABS: Total Cells Counted 100
[2021-02-06] MEDS: URSODIOL 250 MG TAB PO SCH ×2 (09:54→21:50)
[2021-02-06 09:56] LABS: Platelet Estimate Consistent w Auto; RBC Morphology Normal
[2021-02-06] MEDS: HYDROmorphone 1 MG/1 ML INJ IV PRN (09:56)
--- NOTE | 2021-02-06 11:31 | Progress Note ---
Assessment and Plan Assessment and plan: 50-year-old male presenting with a 4-day history of low back pain and found to have elevated lipase, elevated LFTs cholelithiasis and sludge in gallbladder as well as in biliary ducts with the mild dilatation of proximal common bile duct. --Biliary obstruction with mild dilatation of distal CBD Post EGD and trial of ERCP unable, plan repeat ERCP when patient is more stable Trial estradiol started by GI, Clear liquids at this point Surgery evaluated the patient, possible lap cholecystectomy prior to discharge --Transaminitis; slowly trending down Continue current management and supportive care --Acute pancreatitis; biliary pancreatitis Symptoms slightly improved For ERCP, clear liquid diet Lipase trending down 1050 -70 GI following GI following GI following Afebrile without acute GI symptoms, hemodynamically stable --History of HIV diagnosed about 10 years ago Patient reports compliance with antiviral therapy Patient will follow with private ID/health department upon discharge --Substance abuse including crack cocaine currently; Counseling done patient strongly advised to quit recreational drug use Patient verbalized understanding General surgery consulted for laparoscopic cholecystectomy after GI evaluation completed DVT prophylaxis: Subcu Lovenox CODE STATUS: Full code Closely monitor the patient and adjust management as needed 02/04/2021; post EGD/ERCP attempted GI started clear liquids, repeat attempt ERCP when patient is more stable Transaminases trending down Lipase trending down 02/05/21; patient feels better Diet advance to full liquids Possible ERCP on 02/07/2021 02/06/2021; MRCP and possible ERCP tomorrow GI following, n.p.o. from midnight History Interval history: I have seen and examined the patient at the bedside No new events reported by the nursing staff Patient does not have any new complaints Vital signs noted Hospitalist Physical - Constitutional Vitals: Temp Pulse Resp BP Pulse Ox 98.1 F 68 18 131/69 99 02/06/21 07:54 02/06/21 07:54 02/06/21 07:54 02/06/21 07:54 02/06/21 07:54 General appearance: Present: no acute distress, well-nourished - EENT Eyes: Present: PERRL, EOM intact - Neck Neck: Present: supple, normal ROM - Respiratory Respiratory effort: normal Respiratory: bilateral: diminished, negative: rales, rhonchi, wheezing - Cardiovascular Rhythm: regular Heart Sounds: Present: S1 & S2 - Extremities Extremities: no ischemia, No edema - Abdominal General gastrointestinal: soft, non-tender, non-distended - Integumentary Integumentary: Present: clear, warm - Psychiatric Psychiatric: appropriate mood/affect, cooperative - Neurologic Neurologic: moves all extremities Results - Labs CBC & Chem 7: 02/06/21 05:46 02/05/21 05:12 Labs: Laboratory Last Values WBC 3.5 K/mm3 (4.5-11.0) L 02/06/21 05:46 RBC 4.26 M/mm3 (3.65-5.03) 02/06/21 05:46 Hgb 13.3 gm/dl (11.8-15.2) 02/06/21 05:46 Hct 40.0 % (35.5-45.6) 02/06/21 05:46 MCV 94 fl (84-94) 02/06/21 05:46 MCH 31 pg (28-32) 02/06/21 05:46 MCHC 33 % (32-34) 02/06/21 05:46 RDW 13.5 % (13.2-15.2) 02/06/21 05:46 Plt Count 192 K/mm3 (140-440) 02/06/21 05:46 Lymph % (Auto) 43.8 % (13.4-35.0) H 02/05/21 05:12 [place] % (Auto) 8.3 % (0.0-7.3) H 02/05/21 05:12 Eos % (Auto) 2.2 % (0.0-4.3) 02/05/21 05:12 Baso % (Auto) 0.5 % (0.0-1.8) 02/05/21 05:12 Lymph # (Auto) 1.7 K/mm3 (1.2-5.4) 02/05/21 05:12 [place] # (Auto) 0.3 K/mm3 (0.0-0.8) 02/05/21 05:12 Eos # (Auto) 0.1 K/mm3 (0.0-0.4) 02/05/21 05:12 Baso # (Auto) 0.0 K/mm3 (0.0-0.1) 02/05/21 05:12 Add Manual Diff Complete 02/06/21 05:46 Total Counted 100 02/06/21 05:46 Seg Neutrophils % Package Wrapper 02/06/21 05:46 Seg Neuts % (Manual) 27.0 % (40.0-70.0) L 02/06/21 05:46 Lymphocytes % (Manual) 47.0 % (13.4-35.0) H 02/06/21 05:46 Reactive Lymphs % (Man) 12.0 % 02/06/21 05:46 Monocytes % (Manual) 9.0 % (0.0-7.3) H 02/06/21 05:46 Eosinophils % (Manual) 4.0 % (0.0-4.3) 02/06/21 05:46 Basophils % (Manual) 1.0 % (0.0-1.8) 02/06/21 05:46 Nucleated RBC % Not Reportable 02/06/21 05:46 Seg Neutrophils # 1.8 K/mm3 (1.8-7.7) 02/05/21 05:12 Seg Neutrophils # Man 0.9 K/mm3 (1.8-7.7) L 02/06/21 05:46 Band Neutrophils # 0.0 K/mm3 02/06/21 05:46 Lymphocytes # (Manual) 1.6 K/mm3 (1.2-5.4) 02/06/21 05:46 Abs React Lymphs (Man) 0.4 K/mm3 02/06/21 05:46 Monocytes # (Manual) 0.3 K/mm3 (0.0-0.8) 02/06/21 05:46 Eosinophils # (Manual) 0.1 K/mm3 (0.0-0.4) 02/06/21 05:46 Basophils # (Manual) 0.0 K/mm3 (0.0-0.1) 02/06/21 05:46 Metamyelocytes # 0.0 K/mm3 02/06/21 05:46 Myelocytes # 0.0 K/mm3 02/06/21 05:46 Promyelocytes # 0.0 K/mm3 02/06/21 05:46 Blast Cells # 0.0 K/mm3 02/06/21 05:46 WBC Morphology Not Reportable 02/06/21 05:46 Hypersegmented Neuts Not Reportable 02/06/21 05:46 Hyposegmented Neuts Not Reportable 02/06/21 05:46 Hypogranular Neuts Not Reportable 02/06/21 05:46 Smudge Cells Not Reportable 02/06/21 05:46 Toxic Granulation Not Reportable 02/06/21 05:46 Toxic Vacuolation Not Reportable 02/06/21 05:46 Dohle Bodies Not Reportable 02/06/21 05:46 Pel[place]-Huet Anomaly Not Reportable 02/06/21 05:46 Deisy Rods Not Reportable 02/06/21 05:46 Platelet Estimate Consistent w auto 02/06/21 05:46 Clumped Platelets Not Reportable 02/06/21 05:46 Plt Clumps, EDTA Not Reportable 02/06/21 05:46 Large Platelets Not Reportable 02/06/21 05:46 Giant Platelets Not Reportable 02/06/21 05:46 Platelet Satelliting Not Reportable 02/06/21 05:46 Plt Morphology Comment Not Reportable 02/06/21 05:46 RBC Morphology Normal 02/06/21 05:46 Dimorphic RBCs Not Reportable 02/06/21 05:46 Polychromasia Not Reportable 02/06/21 05:46 Hypochromasia Not Reportable 02/06/21 05:46 Poikilocytosis Not Reportable 02/06/21 05:46 Anisocytosis Not Reportable 02/06/21 05:46 Microcytosis Not Reportable 02/06/21 05:46 Macrocytosis Not Reportable 02/06/21 05:46 Spherocytes Not Reportable 02/06/21 05:46 Pappenheimer Bodies Not Reportable 02/06/21 05:46 Sickle Cells Not Reportable 02/06/21 05:46 Target Cells Not Reportable 02/06/21 05:46 Tear Drop Cells Not Reportable 02/06/21 05:46 Ovalocytes Not Reportable 02/06/21 05:46 Helmet Cells Not Reportable 02/06/21 05:46 [place] Bodies Not Reportable 02/06/21 05:46 [place] Rings Not Reportable 02/06/21 05:46 [place] Cells Not Reportable 02/06/21 05:46 Bite Cells Not Reportable 02/06/21 05:46 Crenated Cell Not Reportable 02/06/21 05:46 Elliptocytes Not Reportable 02/06/21 05:46 Acanthocytes (Spur) Not Reportable 02/06/21 05:46 Rouleaux Not Reportable 02/06/21 05:46 Hemoglobin C Crystals Not Reportable 02/06/21 05:46 Schistocytes Not Reportable 02/06/21 05:46 Malaria parasites Not Reportable 02/06/21 05:46 Fili Bodies Not Reportable 02/06/21 05:46 Hem Pathologist Commnt No 02/06/21 05:46 Sodium 141 mmol/L (137-145) 02/05/21 05:12 Potassium 3.9 mmol/L (3.6-5.0) 02/05/21 05:12 Chloride 108.4 mmol/L (98-107) H 02/05/21 05:12 Carbon Dioxide 24 mmol/L (22-30) 02/05/21 05:12 Anion Gap 13 mmol/L 02/05/21 05:12 BUN 8 mg/dL (9-20) L 02/05/21 05:12 Creatinine 0.8 mg/dL (0.8-1.3) 02/05/21 05:12 Estimated GFR > 60 ml/min 02/05/21 05:12 BUN/Creatinine Ratio 10 % 02/05/21 05:12 Glucose 101 mg/dL (75-100) H 02/05/21 05:12 POC Glucose 90 mg/dL (70-105) 02/04/21 16:17 Calcium 7.9 mg/dL (8.4-10.2) L 02/05/21 05:12 Total Bilirubin 0.80 mg/dL (0.1-1.2) 02/05/21 05:12 AST 131 units/L (5-40) H 02/05/21 05:12 ALT 111 units/L (7-56) H 02/05/21 05:12 Alkaline Phosphatase 40 units/L (35-129) 02/05/21 05:12 Total Protein 5.8 g/dL (6.3-8.2) L 02/05/21 05:12 Albumin 3.2 g/dL (3.9-5) L 02/05/21 05:12 Albumin/Globulin Ratio 1.2 % 02/05/21 05:12 Lipase 977 units/L (13-60) H 02/05/21 05:12 Urine Color [place] (Yellow) 02/02/21 Unknown Urine Turbidity Slightly-cloudy (Clear) 02/02/21 Unknown Urine pH 5.0 (5.0-7.0) 02/02/21 Unknown Ur Specific [place] 1.029 (1.003-1.030) 02/02/21 Unknown Urine Protein >500 mg/dL (Negative) 02/02/21 Unknown Urine Glucose (UA) Neg mg/dL (Negative) 02/02/21 Unknown Urine Ketones Neg mg/dL (Negative) 02/02/21 Unknown Urine Blood Lg (Negative) 02/02/21 Unknown Urine Nitrite Neg (Negative) 02/02/21 Unknown Urine Bilirubin Neg (Negative) 02/02/21 Unknown Urine Urobilinogen 4.0 mg/dL (<2.0) 02/02/21 Unknown Ur Leukocyte Esterase Neg (Negative) 02/02/21 Unknown Urine WBC (Auto) 7.0 /HPF (0.0-6.0) H 02/02/21 Unknown Urine RBC (Auto) 5.0 /HPF (0.0-6.0) 02/02/21 Unknown U Epithel Cells (Auto) < 1.0 /HPF (0-13.0) 02/02/21 Unknown Hyaline Casts 2 /LPF 02/02/21 Unknown Urine Mucus 3+ /HPF 02/02/21 Unknown Marie/IV: Voiding Method Toilet Active Medications - Current Medications Current Medications: Generic Name Dose Route Start Last Admin Trade Name Freq PRN Reason Stop Dose Admin Enoxaparin Sodium 40 mg 02/02/21 22:00 02/05/21 21:13 Enoxaparin 40 Mg/0.4 Ml Inj SUB-Q 40 mg QDAY@2200 ZIGGY Administration Protocol Hydromorphone HCl 0.25 mg 02/02/21 15:33 02/06/21 09:56 Hydromorphone 1 Mg/1 Ml Inj IV 0.25 mg Q4H PRN Administration Pain , Severe (7-10) Dextrose/Sodium Chloride 1,000 mls @ 100 mls/hr 02/02/21 18:00 02/06/21 06:09 D5ns IV 100 mls/hr DIRECT ZIGGY Administration Levofloxacin/Dextrose 500 mg in 100 mls @ 100 mls/hr 02/04/21 10:00 02/06/21 09:54 Levaquin 500mg/100ml IV 100 mls/hr Q24HR ZIGGY Administration Protocol Ondansetron HCl 4 mg 02/02/21 15:33 02/02/21 19:50 Ondansetron 4 Mg/2 Ml Inj IV 4 mg Q6H PRN Administration Nausea And Vomiting Ursodiol 500 mg 02/04/21 10:00 02/06/21 09:54 Ursodiol 250 Mg Tab PO 500 mg BID ZIGGY Administration
--- NOTE | 2021-02-06 15:08 | Gastroenterology Progress Note ---
Assessment and Plan Failed ERCP Sunday However, patient is clinically much better No LFTs this morning to ensure they are improving however given the clinical picture ERCP is not urgently required Therefore plan to repeat LFTs and to get an MRCP for further evaluation to see if repeat ERCP is required Differential diagnosis includes choledocholithiasis with the stone having passed, the stone having progressed proximally and no longer causing obstruction but is still present etc. If LFTs improve tomorrow and MRCP is negative for choledocholithiasis patient can be discharged with outpatient follow-up Patient would eventually benefit from cholecystectomy - Patient Problems (1) Choledocholithiasis with acute cholecystitis Current Visit: Yes Status: Acute (2) HIV (human immunodeficiency virus infection) Current Visit: Yes Status: Acute Qualifiers: HIV symptom status: unspecified Qualified Code(s): B20 - Human immunodeficiency virus [HIV] disease (3) Pancreatitis Current Visit: Yes Status: Acute Qualifiers: Chronicity: acute Pancreatitis type: unspecified pancreatitis type Subjective Date of service: 02/06/21 Principal diagnosis: CBD stones Interval history: Patient reports other than some mild back pain feeling well overall Denies abdominal pain anymore denies nausea vomiting He says he does not feel like he did prior when he first came into the hospital Objective - Constitutional Vitals: Temp Pulse Resp BP Pulse Ox 98.3 F 61 20 108/69 92 02/06/21 11:27 02/06/21 11:27 02/06/21 11:27 02/06/21 11:27 02/06/21 11:27 General appearance: no acute distress - EENT Eyes: EOM intact ENT: hearing intact - Neck Neck: supple - Respiratory Respiratory effort: normal - Cardiovascular Rhythm: regular - Gastrointestinal General gastrointestinal: Present: soft, non-tender - Labs CBC & Chem 7: 02/06/21 05:46 02/05/21 05:12 Labs: Laboratory Results - last 24 hr 02/06/21 05:46 WBC 3.5 L RBC 4.26 Hgb 13.3 Hct 40.0 MCV 94 MCH 31 MCHC 33 RDW 13.5 Plt Count 192 Add Manual Diff Complete Total Counted 100 Seg Neutrophils % Sleeping Room Cleaner Seg Neuts % (Manual) 27.0 L Lymphocytes % (Manual) 47.0 H Reactive Lymphs % (Man) 12.0 Monocytes % (Manual) 9.0 H Eosinophils % (Manual) 4.0 Basophils % (Manual) 1.0 Nucleated RBC % Not Reportable Seg Neutrophils # Man 0.9 L Band Neutrophils # 0.0 Lymphocytes # (Manual) 1.6 Abs React Lymphs (Man) 0.4 Monocytes # (Manual) 0.3 Eosinophils # (Manual) 0.1 Basophils # (Manual) 0.0 Metamyelocytes # 0.0 Myelocytes # 0.0 Promyelocytes # 0.0 Blast Cells # 0.0 WBC Morphology Not Reportable Hypersegmented Neuts Not Reportable Hyposegmented Neuts Not Reportable Hypogranular Neuts Not Reportable Smudge Cells Not Reportable Toxic Granulation Not Reportable Toxic Vacuolation Not Reportable Dohle Bodies Not Reportable Pelger-Huet Anomaly Not Reportable Deisy Rods Not Reportable Platelet Estimate Consistent w auto Clumped Platelets Not Reportable Plt Clumps, EDTA Not Reportable Large Platelets Not Reportable Giant Platelets Not Reportable Platelet Satelliting Not Reportable Plt Morphology Comment Not Reportable RBC Morphology Normal Dimorphic RBCs Not Reportable Polychromasia Not Reportable Hypochromasia Not Reportable Poikilocytosis Not Reportable Anisocytosis Not Reportable Microcytosis Not Reportable Macrocytosis Not Reportable Spherocytes Not Reportable Pappenheimer Bodies Not Reportable Sickle Cells Not Reportable Target Cells Not Reportable Tear Drop Cells Not Reportable Ovalocytes Not Reportable Helmet Cells Not Reportable Gamez-[place] Bodies Not Reportable [place] Rings Not Reportable [place] Cells Not Reportable Bite Cells Not Reportable Crenated Cell Not Reportable Elliptocytes Not Reportable Acanthocytes (Spur) Not Reportable Rouleaux Not Reportable Hemoglobin C Crystals Not Reportable Schistocytes Not Reportable Malaria parasites Not Reportable Fili Bodies Not Reportable Hem Pathologist Commnt No
--- NOTE | 2021-02-06 19:28 | Progress Note ---
Assessment and Plan Assessment and plan: Assessment: 50-year-old male presenting with a 4-day history of low back pain and found to have elevated lipase, elevated LFTs cholelithiasis and sludge in gallbladder as well as in biliary ducts with the mild dilatation of proximal common bile duct. Biliary pancreatitis Biliary obstruction with mild dilatation of distal CBD Afebrile without acute GI symptoms, hemodynamically stable History of HIV diagnosed about 10 years ago Patient reports compliance with antiviral therapy Substance abuse including crack cocaine currently Plan: Remains afebrile and hemodynamically stable Hydration with IV fluids Pain management as needed GI already consulted, ERCP was unsuccessful. Monitor lab abnormalities-LFTs improving but lipase is rising General surgery consulted for laparoscopic cholecystectomy after GI evaluation completed 02/06/2021: Patient denies abdominal pain or nausea. No fever. He gets back pain only when bending or ambulating. On clear liquid diet and the lipase is rising again. Scheduled for MRCP tomorrow. LFTs improving however. DVT prophylaxis: Subcu Lovenox CODE STATUS: Full code Discussed with the patient in detail. History Interval history: Patient denies abdominal pain or nausea. No fever. He gets back pain only when bending or ambulating. On clear liquid diet and the lipase is rising again. Scheduled for MRCP tomorrow. LFTs improving however. Hospitalist Physical - Constitutional Vitals: Temp Pulse Resp BP Pulse Ox 98.3 F 64 18 120/79 95 02/06/21 17:14 02/06/21 17:14 02/06/21 17:14 02/06/21 17:14 02/06/21 17:14 General appearance: Present: no acute distress, well-nourished - EENT Eyes: Present: PERRL, EOM intact ENT: clear oral mucosa - Neck Neck: Present: supple - Respiratory Respiratory effort: normal Respiratory: bilateral: CTA - Cardiovascular Rhythm: regular - Extremities Extremities: No edema - Abdominal General gastrointestinal: soft, non-tender, non-distended, normal bowel sounds - Integumentary Integumentary: Absent: rash - Psychiatric Psychiatric: appropriate mood/affect - Neurologic Neurologic: no focal deficits Results - Labs CBC & Chem 7: 02/06/21 05:46 02/05/21 05:12 Labs: Laboratory Last Values WBC 3.5 K/mm3 (4.5-11.0) L 02/06/21 05:46 RBC 4.26 M/mm3 (3.65-5.03) 02/06/21 05:46 Hgb 13.3 gm/dl (11.8-15.2) 02/06/21 05:46 Hct 40.0 % (35.5-45.6) 02/06/21 05:46 MCV 94 fl (84-94) 02/06/21 05:46 MCH 31 pg (28-32) 02/06/21 05:46 MCHC 33 % (32-34) 02/06/21 05:46 RDW 13.5 % (13.2-15.2) 02/06/21 05:46 Plt Count 192 K/mm3 (140-440) 02/06/21 05:46 Lymph % (Auto) 43.8 % (13.4-35.0) H 02/05/21 05:12 [place] % (Auto) 8.3 % (0.0-7.3) H 02/05/21 05:12 Eos % (Auto) 2.2 % (0.0-4.3) 02/05/21 05:12 Baso % (Auto) 0.5 % (0.0-1.8) 02/05/21 05:12 Lymph # (Auto) 1.7 K/mm3 (1.2-5.4) 02/05/21 05:12 [place] # (Auto) 0.3 K/mm3 (0.0-0.8) 02/05/21 05:12 Eos # (Auto) 0.1 K/mm3 (0.0-0.4) 02/05/21 05:12 Baso # (Auto) 0.0 K/mm3 (0.0-0.1) 02/05/21 05:12 Add Manual Diff Complete 02/06/21 05:46 Total Counted 100 02/06/21 05:46 Seg Neutrophils % Elevator Conductor 02/06/21 05:46 Seg Neuts % (Manual) 27.0 % (40.0-70.0) L 02/06/21 05:46 Lymphocytes % (Manual) 47.0 % (13.4-35.0) H 02/06/21 05:46 Reactive Lymphs % (Man) 12.0 % 02/06/21 05:46 Monocytes % (Manual) 9.0 % (0.0-7.3) H 02/06/21 05:46 Eosinophils % (Manual) 4.0 % (0.0-4.3) 02/06/21 05:46 Basophils % (Manual) 1.0 % (0.0-1.8) 02/06/21 05:46 Nucleated RBC % Not Reportable 02/06/21 05:46 Seg Neutrophils # 1.8 K/mm3 (1.8-7.7) 02/05/21 05:12 Seg Neutrophils # Man 0.9 K/mm3 (1.8-7.7) L 02/06/21 05:46 Band Neutrophils # 0.0 K/mm3 02/06/21 05:46 Lymphocytes # (Manual) 1.6 K/mm3 (1.2-5.4) 02/06/21 05:46 Abs React Lymphs (Man) 0.4 K/mm3 02/06/21 05:46 Monocytes # (Manual) 0.3 K/mm3 (0.0-0.8) 02/06/21 05:46 Eosinophils # (Manual) 0.1 K/mm3 (0.0-0.4) 02/06/21 05:46 Basophils # (Manual) 0.0 K/mm3 (0.0-0.1) 02/06/21 05:46 Metamyelocytes # 0.0 K/mm3 02/06/21 05:46 Myelocytes # 0.0 K/mm3 02/06/21 05:46 Promyelocytes # 0.0 K/mm3 02/06/21 05:46 Blast Cells # 0.0 K/mm3 02/06/21 05:46 WBC Morphology Not Reportable 02/06/21 05:46 Hypersegmented Neuts Not Reportable 02/06/21 05:46 Hyposegmented Neuts Not Reportable 02/06/21 05:46 Hypogranular Neuts Not Reportable 02/06/21 05:46 Smudge Cells Not Reportable 02/06/21 05:46 Toxic Granulation Not Reportable 02/06/21 05:46 Toxic Vacuolation Not Reportable 02/06/21 05:46 Dohle Bodies Not Reportable 02/06/21 05:46 Pelger-Huet Anomaly Not Reportable 02/06/21 05:46 Deisy Rods Not Reportable 02/06/21 05:46 Platelet Estimate Consistent w auto 02/06/21 05:46 Clumped Platelets Not Reportable 02/06/21 05:46 Plt Clumps, EDTA Not Reportable 02/06/21 05:46 Large Platelets Not Reportable 02/06/21 05:46 Giant Platelets Not Reportable 02/06/21 05:46 Platelet Satelliting Not Reportable 02/06/21 05:46 Plt Morphology Comment Not Reportable 02/06/21 05:46 RBC Morphology Normal 02/06/21 05:46 Dimorphic RBCs Not Reportable 02/06/21 05:46 Polychromasia Not Reportable 02/06/21 05:46 Hypochromasia Not Reportable 02/06/21 05:46 Poikilocytosis Not Reportable 02/06/21 05:46 Anisocytosis Not Reportable 02/06/21 05:46 Microcytosis Not Reportable 02/06/21 05:46 Macrocytosis Not Reportable 02/06/21 05:46 Spherocytes Not Reportable 02/06/21 05:46 Pappenheimer Bodies Not Reportable 02/06/21 05:46 Sickle Cells Not Reportable 02/06/21 05:46 Target Cells Not Reportable 02/06/21 05:46 Tear Drop Cells Not Reportable 02/06/21 05:46 Ovalocytes Not Reportable 02/06/21 05:46 Helmet Cells Not Reportable 02/06/21 05:46 Gamez-[place] Bodies Not Reportable 02/06/21 05:46 [place] Rings Not Reportable 02/06/21 05:46 [place] Cells Not Reportable 02/06/21 05:46 Bite Cells Not Reportable 02/06/21 05:46 Crenated Cell Not Reportable 02/06/21 05:46 Elliptocytes Not Reportable 02/06/21 05:46 Acanthocytes (Spur) Not Reportable 02/06/21 05:46 Rouleaux Not Reportable 02/06/21 05:46 Hemoglobin C Crystals Not Reportable 02/06/21 05:46 Schistocytes Not Reportable 02/06/21 05:46 Malaria parasites Not Reportable 02/06/21 05:46 Fili Bodies Not Reportable 02/06/21 05:46 Hem Pathologist Commnt No 02/06/21 05:46 Sodium 141 mmol/L (137-145) 02/05/21 05:12 Potassium 3.9 mmol/L (3.6-5.0) 02/05/21 05:12 Chloride 108.4 mmol/L (98-107) H 02/05/21 05:12 Carbon Dioxide 24 mmol/L (22-30) 02/05/21 05:12 Anion Gap 13 mmol/L 02/05/21 05:12 BUN 8 mg/dL (9-20) L 02/05/21 05:12 Creatinine 0.8 mg/dL (0.8-1.3) 02/05/21 05:12 Estimated GFR > 60 ml/min 02/05/21 05:12 BUN/Creatinine Ratio 10 % 02/05/21 05:12 Glucose 101 mg/dL (75-100) H 02/05/21 05:12 POC Glucose 90 mg/dL (70-105) 02/04/21 16:17 Calcium 7.9 mg/dL (8.4-10.2) L 02/05/21 05:12 Total Bilirubin 0.80 mg/dL (0.1-1.2) 02/05/21 05:12 AST 131 units/L (5-40) H 02/05/21 05:12 ALT 111 units/L (7-56) H 02/05/21 05:12 Alkaline Phosphatase 40 units/L (35-129) 02/05/21 05:12 Total Protein 5.8 g/dL (6.3-8.2) L 02/05/21 05:12 Albumin 3.2 g/dL (3.9-5) L 02/05/21 05:12 Albumin/Globulin Ratio 1.2 % 02/05/21 05:12 Lipase 977 units/L (13-60) H 02/05/21 05:12 Urine Color [place] (Yellow) 02/02/21 Unknown Urine Turbidity Slightly-cloudy (Clear) 02/02/21 Unknown Urine pH 5.0 (5.0-7.0) 02/02/21 Unknown Ur Specific [place] 1.029 (1.003-1.030) 02/02/21 Unknown Urine Protein >500 mg/dL (Negative) 02/02/21 Unknown Urine Glucose (UA) Neg mg/dL (Negative) 02/02/21 Unknown Urine Ketones Neg mg/dL (Negative) 02/02/21 Unknown Urine Blood Lg (Negative) 02/02/21 Unknown Urine Nitrite Neg (Negative) 02/02/21 Unknown Urine Bilirubin Neg (Negative) 02/02/21 Unknown Urine Urobilinogen 4.0 mg/dL (<2.0) 02/02/21 Unknown Ur Leukocyte Esterase Neg (Negative) 02/02/21 Unknown Urine WBC (Auto) 7.0 /HPF (0.0-6.0) H 02/02/21 Unknown Urine RBC (Auto) 5.0 /HPF (0.0-6.0) 02/02/21 Unknown U Epithel Cells (Auto) < 1.0 /HPF (0-13.0) 02/02/21 Unknown Hyaline Casts 2 /LPF 02/02/21 Unknown Urine Mucus 3+ /HPF 02/02/21 Unknown Marie/IV: Voiding Method Toilet Active Medications - Current Medications Current Medications: Generic Name Dose Route Start Last Admin Trade Name Freq PRN Reason Stop Dose Admin Enoxaparin Sodium 40 mg 02/02/21 22:00 02/05/21 21:13 Enoxaparin 40 Mg/0.4 Ml Inj SUB-Q 40 mg QDAY@2200 ZIGGY Administration Protocol Hydromorphone HCl 0.25 mg 02/02/21 15:33 02/06/21 09:56 Hydromorphone 1 Mg/1 Ml Inj IV 0.25 mg Q4H PRN Administration Pain , Severe (7-10) Dextrose/Sodium Chloride 1,000 mls @ 100 mls/hr 02/02/21 18:00 02/06/21 06:09 D5ns IV 100 mls/hr DIRECT ZIGGY Administration Levofloxacin/Dextrose 500 mg in 100 mls @ 100 mls/hr 02/04/21 10:00 02/06/21 09:54 Levaquin 500mg/100ml IV 100 mls/hr Q24HR ZIGGY Administration Protocol Ondansetron HCl 4 mg 02/02/21 15:33 02/02/21 19:50 Ondansetron 4 Mg/2 Ml Inj IV 4 mg Q6H PRN Administration Nausea And Vomiting Ursodiol 500 mg 02/04/21 10:00 02/06/21 09:54 Ursodiol 250 Mg Tab PO 500 mg BID ZIGGY Administration
[2021-02-06] MEDS: ENOXAPARIN 40 MG/0.4 ML INJ SUB-Q SCH (21:51)
[2021-02-07 07:04] LABS: Albumin 3.4 g/dL (3.9-5); Bilirubin,Direct 0.2 mg/dL (0-0.2)
--- NOTE | 2021-02-07 07:51 | Gastroenterology Progress Note ---
Assessment and Plan Failed ERCP Sunday However, patient is clinically much better Liver enzymes this morning continue to improve and the bilirubin alkaline phosphatase are completely normal rendering biliary obstruction highly unlikely Still recommend MRCP to ensure no residual choledocholithiasis which is nonobstructing I defer to surgery regarding timing for cholecystectomy Differential diagnosis includes choledocholithiasis with the stone having passed, the stone having progressed proximally and no longer causing obstruction but is still present etc. - Patient Problems (1) Choledocholithiasis with acute cholecystitis Current Visit: Yes Status: Acute (2) HIV (human immunodeficiency virus infection) Current Visit: Yes Status: Acute Qualifiers: HIV symptom status: unspecified Qualified Code(s): B20 - Human immunod eficiency virus [HIV] disease (3) Pancreatitis Current Visit: Yes Status: Acute Qualifiers: Chronicity: acute Pancreatitis type: unspecified pancreatitis type Subjective Date of service: 02/07/21 Principal diagnosis: CBD stones Interval history: Patient reports still feeling better, other than some mild back pain feeling well overall Denies abdominal pain anymore denies nausea vomiting He says he does not feel like he did prior when he first came into the hospital LFTs improving Objective - Constitutional Vitals: Temp Pulse Resp BP Pulse Ox 99.0 F 64 18 111/74 94 02/07/21 04:24 02/07/21 04:24 02/07/21 04:24 02/07/21 04:24 02/07/21 04:24 General appearance: no acute distress - EENT Eyes: EOM intact - Neck Neck: supple - Respiratory Respiratory effort: normal - Cardiovascular Rhythm: regular - Gastrointestinal General gastrointestinal: Present: soft, non-tender - Labs CBC & Chem 7: 02/06/21 05:46 02/05/21 05:12 Labs: Laboratory Results - last 24 hr 02/06/21 02/07/21 05:46 05:03 Add Manual Diff Complete Total Counted 100 Seg Neuts % (Manual) 27.0 L Lymphocytes % (Manual) 47.0 H Reactive Lymphs % (Man) 12.0 Monocytes % (Manual) 9.0 H Eosinophils % (Manual) 4.0 Basophils % (Manual) 1.0 Nucleated RBC % Not Reportable Seg Neutrophils # Man 0.9 L Band Neutrophils # 0.0 Lymphocytes # (Manual) 1.6 Abs React Lymphs (Man) 0.4 Monocytes # (Manual) 0.3 Eosinophils # (Manual) 0.1 Basophils # (Manual) 0.0 Metamyelocytes # 0.0 Myelocytes # 0.0 Promyelocytes # 0.0 Blast Cells # 0.0 WBC Morphology Not Reportable Hypersegmented Neuts Not Reportable Hyposegmented Neuts Not Reportable Hypogranular Neuts Not Reportable Smudge Cells Not Reportable Toxic Granulation Not Reportable Toxic Vacuolation Not Reportable Dohle Bodies Not Reportable Pelger-Huet Anomaly Not Reportable Deisy Rods Not Reportable Platelet Estimate Consistent w auto Clumped Platelets Not Reportable Plt Clumps, EDTA Not Reportable Large Platelets Not Reportable Giant Platelets Not Reportable Platelet Satelliting Not Reportable Plt Morphology Comment Not Reportable RBC Morphology Normal Dimorphic RBCs Not Reportable Polychromasia Not Reportable Hypochromasia Not Reportable Poikilocytosis Not Reportable Anisocytosis Not Reportable Microcytosis Not Reportable Macrocytosis Not Reportable Spherocytes Not Reportable Pappenheimer Bodies Not Reportable Sickle Cells Not Reportable Target Cells Not Reportable Tear Drop Cells Not Reportable Ovalocytes Not Reportable Helmet Cells Not Reportable Gamez-[place] Bodies Not Reportable [place] Rings Not Reportable [place] Cells Not Reportable Bite Cells Not Reportable Crenated Cell Not Reportable Elliptocytes Not Reportable Acanthocytes (Spur) Not Reportable Rouleaux Not Reportable Hemoglobin C Crystals Not Reportable Schistocytes Not Reportable Malaria parasites Not Reportable Fili Bodies Not Reportable Hem Pathologist Commnt No Total Bilirubin 0.70 Direct Bilirubin 0.2 Indirect Bilirubin 0.5 AST 60 H ALT 77 H Alkaline Phosphatase 46 Total Protein 6.0 L Albumin 3.4 L Albumin/Globulin Ratio 1.3
[2021-02-07 09:51] VITALS: BP 140/79
--- NOTE | 2021-02-07 10:40 | Magnetic Resonance Report ---
MRI ABDOMEN WITHOUT CONTRAST MRCP INDICATION / CLINICAL INFORMATION: elevated lft, failed ercp. TECHNIQUE: Multiplanar, multisequence series were obtained through the abdomen. Coronal thin slab and radial MRC P images. COMPARISON: None available. FINDINGS: LIVER: No significant abnormality. GALLBLADDER: A large stone in the gallbladder measures 1.2 cm. There also appears to be a small amoun t of sludge. No evidence for gallbladder wall thickening, surrounding fluid or abnormal distention. BILE DUCTS: The MRCP images demonstrate mild dilatation of the common bile duct up to 7.[address] There is smooth tapering of the distal common bile duct near the ampulla. No choledocholithiasis is detected on MRCP. The intrahepatic ducts are unremarkable. PANCREAS: No significant abnormality. SPLEEN: No significant abnormality. ADRENALS: No significant abnormality. RIGHT KIDNEY AND URETER: No significant abnormality. LEFT KIDNEY AND URETER: 1.4 cm cyst near mid pole is identified, otherwise unremarkable. STOMACH AND VISUALIZED BOWEL: No significant abnormality. PERITONEUM: No free fluid. No free air. No fluid collection. LYMPH NODES: No significant adenopathy. AORTA and ARTERIES: No significant abnormality. IVC and VEINS: No significant abnormality. ADDITIONAL FINDINGS: None. SKELETAL SYSTEM: No significant abnormality. IMPRESSION: Cholelithiasis but no evidence for acute cholecystitis. The common bile duct remains mildly dilated measuring up to 7.9 mm in diameter. No convincing choledo cholithiasis is detected. There is smooth tapering of the distal common bile duct which could indicat e a mild benign stricture. 1.4 cm left renal cyst. Signer Name: Armen Jackson Jr, MD Signed: 02/07/2021 10:32 AM Workstation Name: [id number]
[2021-02-07] MEDS: URSODIOL 250 MG TAB PO SCH (11:54)
--- NOTE | 2021-02-07 12:30 | Event Note ---
Date: 02/07/21 MRCP noted pt should f/u with GI as outpatient for this, otherwise we'll sign off CCY timing per recs of surgery
--- NOTE | 2021-02-07 14:25 | Discharge Summary ---
Providers - Providers Date of Admission: 02/03/21 08:00 Date of discharge: 02/07/21 Attending physician: MARTÍNEZ WADDELL 02/02/21 10:39 Consult to Physician [CONS] Routine Comment: Consulting Provider: NIYA VENEGAS Physician Instructions: Reason For Exam: gallstone pancreatitis 02/03/21 10:59 Consult to Physician [CONS] Routine Comment: Consulting Provider: SAMMY HARRISON Physician Instructions: Reason For Exam: Biliary pancreatitis Primary care physician: SALARY MANAGER Hospitalization Condition: Stable Disposition: 01 HOME / SELF CARE / HOMELESS Core Measure Documentation - Palliative Care Palliative Care/ Comfort Measures: Not Applicable - Core Measures Any of the following diagnoses?: none Exam - Constitutional Vitals: Temp Pulse Resp BP Pulse Ox 98.3 F 67 20 140/79 99 02/07/21 09:30 02/07/21 09:30 02/07/21 09:30 02/07/21 09:30 02/07/21 10:00 General appearance: Present: no acute distress, well-nourished - EENT Eyes: Present: PERRL, EOM intact - Neck Neck: Present: supple, normal ROM - Respiratory Respiratory effort: normal Respiratory: bilateral: diminished, negative: rales, rhonchi, wheezing - Cardiovascular Rhythm: regular Heart Sounds: Present: S1 & S2 - Extremities Extremities: no ischemia, No edema - Abdominal General gastrointestinal: Present: soft, non-tender, non-distended, normal bowel sounds - Integumentary Integumentary: Present: clear, warm - Musculoskeletal Musculoskeletal: strength equal bilaterally, generalized weakness - Psychiatric Psychiatric: appropriate mood/affect, cooperative - Neurologic Neurologic: CNII-XII intact, moves all extremities Plan Activity: no restrictions Diet: regular Special Instructions: smoking cessation Additional Instructions: Smoking cessation counseling done, nicotine patch as needed. Advance diet as tolerated. Follow GI and surgeon per schedule. If you have worsening symptoms contact MD or go to the nearest emergency room as needed Follow up with: PRIMARY MD MESFIN [Primary Care Provider] - 3-5 Days NELLY MI MD [Staff Physician] - 7 Days SAMMY HARRISON MD [Staff Physician] - 14 Days Prescriptions: levoFLOXacin [Levaquin TAB] 500 mg PO QDAY #3 tablet Famotidine [Pepcid] 10 mg PO BID #30 tablet oxyCODONE /ACETAMINOPHEN [Percocet 5/325] 1 tab PO BID PRN #8 tablet PRN Reason: Pain , Severe (7-10) ursodioL [Ursodiol] 500 mg PO BID #30 tablet Ondansetron HCl [Zofran] 4 mg PO Q4H PRN #14 tablet PRN Reason: Nausea And Vomiting
== END 2021-02-07 15:42 | disposition home or self-care (01) | DRG 444 ==
LOC: ED 04:23 → 3A 10:41 → 4A 21:18 → OBSVTOIN 02-03 08:00
PROVIDERS: ADMIT Internal Medicine; ATTEND Internal Medicine
PROC: 0FJB8ZZ Inspection of Hepatobiliary Duct, Via Natural or Artificial Opening Endoscopic (ICD-10-PCS; principal; 2021-02-04)
DX: K80.00 Calculus of gallbladder with acute cholecystitis without obstruction (principal); K85.10 Biliary acute pancreatitis without necrosis or infection; Z21 Asymptomatic human immunodeficiency virus [HIV] infection status; F17.200 Nicotine dependence, unspecified, uncomplicated; Z20.822 Contact with and (suspected) exposure to COVID-19
CPT/HCPCS: 36415; 72100; 74176; 74181; 76705; 80053; 80076; 81001; 82962; 83690; 85007; 85025; 99406; G0378; C1726; J1170; J1610; J1650; J1956; J2250; J2405; J2704; J7030; J7042; J7512; Q0162; Q9967